=== PATIENT | female | born 1995 | race Caucasian/White ===

== ENCOUNTER 2019-09-02 20:35 | Emergency (ER) | payer SELFPAY ==
[2019-09-02] VITALS (8 sets, daily range): BP systolic 98–118; BP diastolic 61–64; PULSE 70–91; RESP 15–20; TEMP 36.4; O2SAT 96–98; BMI 31.8
--- NOTE | 2019-09-02 21:02 | W.ED.ASTHMA ---
HPI - Asthma General: Chief Complaint: Asthma Stated Complaint: asthma attacks Time Seen by Provider: 09/02/19 20:54 History of Present Illness: HPI Narrative: Patient is a very pleasant usually controlled asthmatic who presents for asthma flare- mild in nature however she was unable to get her beta agonist MDI filled today. SHe noticed she was low and called PCP but did not get ahold of her prior to being able to call in her refill. She uses a spacer with her MDI. She is wheezing and tight. WIll provide neb treatment and MDI. Pt agrees. Denies chest pain ,fever cough etc. MD complaint: asthma attack Onset (ago): hour(s) Severity: moderate Context: ran out of meds Associated symptoms: Reports no associated symptoms and non-productive cough; Deny chest pain, fever(s), hemoptysis or productive cough Asthma History: childhood onset Review of Systems Const: Denies: fever, chills, change in appetite or malaise Eyes: Denies: change in vision, blurry vision, eye discharge or eye redness ENMT: Denies: throat pain, uvular edema, painful swallowing, mouth pain, dental pain, nasal congestion or facial/sinus pain Card: Denies: chest pain, irregular heart rhythm, swelling of feet/ankles, shortness of breath on exertion, shortness of breath when lying down or leg pain with exertion Resp: Reports: shortness of breath, non-productive cough and wheezing; Denies: productive cough or coughing up blood GI: Denies: abdominal pain, nausea, vomiting, diarrhea, constipation or fecal incontinence : Denies: flank pain, difficulty urinating, painful urination, urinary frequency, urinary urgency or urinary hesitancy Musc: Denies: neck pain, back pain, extremity pain or extremity swelling Skin/Breast: Denies: rash, itching, redness, yellow skin or dry skin Neuro: Denies: headache, numbness in extremities, weakness in extremities, changes in sensation, lack of coordination or difficulty walking Psych: Denies: anxiety, depression, mood swings, panic attacks, sleeping less, suicidal ideation or homicidal ideation Endo: Denies: excessive urination, excessive thirst or tired all the time Jeff/Lymph: Denies: easy bruising, petechiae or enlarged lymph nodes All/Imm: Denies: hives, throat swelling, facial swelling, acute wheezing or seasonal allergies PFSH ED PFSH: Statuses (acute, chronic, etc) shown below reflect problem list status as previously entered and may not be historically accurate Social History Smoking and tobacco status: current every day smoker Female Reproductive History: Date of last menstrual period: 09/01/19 Physical Exam Const: COMMON NORMALS: no apparent distress, oriented x3, no limitations, healthy appearing, alert and well nourished GENERAL APPEARANCE: cooperative, comfortable, well kempt and well developed ORIENTATION/CONSCIOUSNESS: Yes awake, Yes oriented to person, Yes oriented to place and Yes oriented to time HENMT: COMMON NORMALS: normocephalic, head/scalp atraumatic, hearing grossly normal bilaterally, external ears normal, EAC's normal, TM's normal bilaterally, external nose normal, nasal mucous membranes and turbinates normal, moist oral mucous membranes, oropharynx normal, dentition normal and gingiva normal HEAD & SCALP: normal to inspection, normocephalic and atraumatic FACE & SINUS: normal facial exam NOSE: external nose normal and nasal mucous membranes and turbinates normal EXTERNAL EAR: Yes external ears normal EXTERNAL AUDITORY CANAL: EAC's normal TYMPANIC MEMBRANE: TM's normal bilaterally MOUTH: oral and palatal mucosa normal, lip normal and tongue normal THROAT: no uvular edema Eye: COMMON NORMALS: PERRL, EOMs intact bilaterally, conjunctivae normal, no scleral icterus and normal visual messer by confrontation GENERAL EYE: normal appearance of both eyes and normal light reflex VISUAL ACUITY: Yes acuity normal ALIGNMENT: Yes alignment normal PERIORBITAL: periorbital findings normal EYELID: eyelids normal CONJUNCTIVA: Yes conjunctivae normal SCLERA: sclerae normal PUPIL: Yes PERRL and Yes accommodation reflex normal DIRECT OPHTHALMOSCOPY: Yes normal light reflex Neck/C-Spine: COMMON NORMALS: full ROM, no lymphadenopathy, supple, no meningeal signs and no JVD GENERAL: Yes normal visual inspection CAROTIDS: Yes normal carotid upstroke CERVICAL SPINE: Yes cervical ROM normal Lymph: LYMPHATIC: no lymphadenopathy noted Chest: COMMONS NORMALS: inspection of chest normal CHEST: Yes symmetrical chest wall rise Resp: COMMON NORMALS: normal respiratory effort, no retractions and no use of accessory muscles EFFORT & INSPECTION: Yes able to speak in complete sentences, Yes symmetric chest movement and Yes audible wheezes AUSCULTATION: wheezes Cardio: COMMON NORMALS: no JVD, regular rate, regular rhythm, S1 normal heart sound, S2 normal heart sound, no murmurs and peripheral pulses 2+ throughout RATE: regular rate RHYTHM: regular rhythm HEART SOUNDS: S1 normal and S2 normal PERIPHERAL PULSES: pulses 2+ throughout GI: COMMON NORMALS: normal to inspection, nondistended, normoactive bowel sounds and non-tender : COMMON NORMALS: Yes no CVA tenderness BLADDER/KIDNEY EXAM: Yes no CVA tenderness Back/Pelvis: COMMON NORMALS: no CVA tenderness, thoracic and lumbar spine normal to inspection, no thoracic nor lumbar tenderness and thoraco-lumbar ROM normal Extremity: COMMON NORMALS: normal to inspection, full ROM, normal capillary refill, no calf tenderness and no pedal edema Neuro: COMMON NORMALS: oriented x3, CN's II-XII intact bilaterally, moves all extremities, no focal motor deficits, no sensory deficits noted and gait normal SENSORIUM/ORIENTATION: Yes alert, Yes oriented to person, Yes oriented to place and Yes oriented to time MENINGEAL SIGNS: Yes no meningeal signs SPEECH: speech normal GAIT: Yes normal gait MOTOR EXAM: strength 5/5 throughout, no pronator drift and no tremor noted Psych: COMMON NORMALS: mental status grossly normal, thought process normal, cooperative, affect normal, speech normal and activity/motor behavior normal APPEARANCE: Yes well kempt SPEECH: Yes normal speech THOUGHT PROCESS: normal thought process THOUGHT CONTENT: Yes normal thought content INSIGHT: insight good Skin: COMMON NORMALS: no rashes or lesions noted, no wounds, skin turgor normal and no jaundice GENERAL SKIN EXAM: no rashes or lesions noted and turgor normal Course ED course: pt better after treatment will return for problems. Vital Signs: Vital signs: Vital Signs Temperature 97.6 F 09/02/19 20:42 Pulse Rate 85 09/02/19 20:42 Respiratory Rate 20 H 09/02/19 20:42 Blood Pressure 113/62 09/02/19 20:42 Pulse Oximetry 97 09/02/19 20:42 MDM - Asthma Differential Diagnosis: Differential diagnosis asthma: Likely acute exacerbation and acute asthmatic bronchitis Medical Records: Attestation: I reviewed the patient's medical records. Discharge Plan Discharge Patient Disposition: Home, Self-Care Clinical Impression: Asthma with acute exacerbation Qualifiers: Asthma severity: moderate Asthma persistence: unspecified Qualified Code(s): J45.901 - Unspecified asthma with (acute) exacerbation Condition: Stable Prescriptions: New albuterol sulfate [Ventolin HFA] 90 mcg/actuation HFA aerosol inhaler 2 inh INHALATION Q6H PRN (Reason: shortness of breath or wheezing) Qty: 8 RF: 0 Referrals: Ester,Benjamin, MULTIGRAPH OPERATOR [Family Provider] - Discharge Diet: Usual diet Discharge Activity: Resume usual activity Patient Instructions: Asthma Exacerbation - Adult Coding 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
[2019-09-02] MEDS: ipratropium-albuterol 3 mL Neb INHALATION (22:01)
[2019-09-02] MEDS: albuterol 8 gm MDI 2 PUFF INHALATION (22:05)
== END 2019-09-02 22:26 | disposition home or self-care (01) ==
LOC: ER 22:13
PROVIDERS: Emergency Provider Emergency Medicine; Family Provider Nurse Practitioner Family
DX: J45.901 Unspecified asthma with (acute) exacerbation (principal); F17.210 Nicotine dependence, cigarettes, uncomplicated
CPT/HCPCS: 94640; 99281; 99283; J3535

== ENCOUNTER 2019-10-15 17:32 | Emergency (ER) | payer MEDICAID, SELFPAY ==
--- NOTE | 2019-10-15 17:34 | XRR_ITS ---
PROCEDURE INFORMATION: Exam: XR Chest, 2 Views Exam date and time: 10/15/2019 5:58 PM Age: 24 years old Clinical indication: Cough TECHNIQUE: Imaging protocol: XR of the chest Views: 2 views. COMPARISON: CR Chest 1 [place] [id number] 12/18/2018 12:57 AM FINDINGS: Lungs: Lungs still clear. Pleural space: Unremarkable. No pleural effusion. No pneumothorax. Heart/Mediastinum: Still no cardiomegaly. Bones/joints: Old slight compression fractures. Possible narrowing of a mid thoracic disc. XR/XR chest 2V* [id number] IMPRESSION: No acute findings.
[2019-10-15 18:15] VITALS: BP 115/79; PULSE 87; RESP 16; TEMP 36.8; O2SAT 98; BMI 34.3
[2019-10-15 19:22] VITALS: BP 105/65; PULSE 95; RESP 20; TEMP 36.7; O2SAT 98
--- NOTE | 2019-10-15 19:53 | W.ED.SOB ---
HPI - SOB/Dyspnea General: Chief Complaint: Shortness of Breath/Dyspnea Stated Complaint: SOB Time Seen by Provider: 10/15/19 19:25 History of Present Illness: MD elicited complaint: shortness of breath and cough Pertinent past history: asthma Onset (ago): hour(s) (24) Context: choking/aspiration and allergen exposure Severity: moderate Relieving factors: bronchodilators Known history of: asthma Associated symptoms: Reports chest congestion and cough; Deny abdominal pain, chest pain, dizziness, fever(s), nausea or vomiting Review of Systems Const: Denies: fever or chills Eyes: Denies: change in vision or blurry vision ENMT: Denies: painful swallowing, post nasal drip or facial/sinus pain Card: Denies: chest pain Resp: Reports: chest congestion GI: Denies: abdominal pain, nausea or vomiting : Denies: painful urination or urinary frequency Musc: Denies: neck pain, back pain, redness or joint warmth Skin/Breast: Denies: rash, itching or redness Neuro: Denies: headache, dizziness or vertigo Psych: Denies: anxiety PFSH ED PFSH: Social History Smoking and tobacco status: never smoked Female Reproductive History: Date of last menstrual period: 09/01/19 Physical Exam Const: GENERAL APPEARANCE: well developed ORIENTATION/CONSCIOUSNESS: Yes oriented to person, Yes oriented to place and Yes oriented to time HENMT: COMMON NORMALS: normocephalic, external ears normal and external nose normal HEAD & SCALP: normocephalic; no scalp tenderness FACE & SINUS: normal facial exam NOSE: external nose normal and no nasal discharge EXTERNAL EAR: Yes external ears normal MOUTH: tongue normal THROAT: posterior oropharynx normal; no peritonsillar mass Eye: COMMON NORMALS: PERRL, EOMs intact bilaterally and conjunctivae normal EYELID: eyelids normal CONJUNCTIVA: Yes conjunctivae normal PUPIL: Yes PERRL Chest: COMMONS NORMALS: inspection of chest normal CHEST: No tenderness Resp: EFFORT & INSPECTION: No tachypneic, No respiratory distress, No retractions, No uses accessory muscles and No tracheal deviation AUSCULTATION: no rhonchi, wheezes and lung sounds not diminished Cardio: COMMON NORMALS: regular rate and regular rhythm RATE: regular rate RHYTHM: regular rhythm HEART SOUNDS: no murmurs PERIPHERAL PULSES: radial pulses present GI: INSPECTION: No abdominal distension AUSCULTATION: No hyperactive bowel sounds and No hypoactive bowel sounds PALPATION: No guarding and No rigid PERCUSSION: no dullness to percussion and no tympanic to percussion Neuro: SENSORIUM/ORIENTATION: Yes oriented to person, Yes oriented to place and Yes oriented to time Psych: COMMON NORMALS: mental status grossly normal Skin: COMMON NORMALS: no rashes or lesions noted GENERAL SKIN EXAM: no rashes or lesions noted Course Vital Signs: Vital signs: Vital Signs Temperature 98.4 F 10/15/19 20:38 Pulse Rate 86 10/15/19 20:38 Respiratory Rate 18 10/15/19 20:38 Blood Pressure 102/62 10/15/19 20:38 Pulse Oximetry 98 10/15/19 20:38 MDM - SOB/Dyspnea MDM Narrative: Medical decision making narrative: 24-year-old female, 6 weeks , history of asthma, presents with wheezing and shortness of breath. She has been using her nebulizer treatments today, but they are not helping much. She is wheezing on exam. Her chest x-ray is negative. She will be discharged on prednisone, and prescribed an inhaler. Discharge Plan Discharge Patient Disposition: Home, Self-Care Clinical Impression: Asthma with exacerbation Qualifiers: Asthma severity: moderate Asthma persistence: unspecified Qualified Code(s): J45.901 - Unspecified asthma with (acute) exacerbation Condition: Stable Prescriptions: New Ventolin HFA 90 mcg/actuation HFA aerosol inhaler 2 inh INHALATION Q6H PRN (Reason: shortness of breath or wheezing) Qty: 18 RF: 0 prednisone 20 mg tablet 60 mg PO DAILY 5 Days Qty: 15 RF: 0 No Action Ventolin HFA 90 mcg/actuation HFA aerosol inhaler 2 inh INHALATION Q6H PRN (Reason: shortness of breath or wheezing) Qty: 8 RF: 0 Discharge Orders: Discharge Order (Routine); Ordered 10/15/19 Ordered By: Stew Gagnon Referrals: Benjamin Norman COLLECTIONS REPRESENTATIVE [Family Provider] - Discharge Diet: Advance as tolerated Discharge Activity: Resume usual activity Patient Instructions: Asthma (ED) Activity Restrictions/Additional Instructions: Return for fever greater than 100, shortness of breath worsening despite treatment, chest discomfort, other concerning symptoms. Use your nebulizer machine every 4-6 hours scheduled for the next 48 hours, then as needed. 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
[2019-10-15] MEDS: predniSONE 20 mg Tablet 60 MG PO (20:20)
[2019-10-15 20:38] VITALS: BP 102/62; PULSE 86; RESP 18; TEMP 36.9; O2SAT 98
--- NOTE | 2019-10-15 20:41 | PC.NURSE ---
Rn reviewed and agrees with assessment
== END 2019-10-15 20:38 | disposition home or self-care (01) ==
PROVIDERS: Emergency Provider Emergency Medicine; Family Provider Nurse Practitioner Family
DX: O99.511 Diseases of the respiratory system complicating pregnancy, first trimester (principal); J45.901 Unspecified asthma with (acute) exacerbation; Z3A.01 Less than 8 weeks gestation of pregnancy
CPT/HCPCS: 71046; 99281; 99283; J7512

== ENCOUNTER 2023-04-09 12:19 | Outpatient (CLI) | payer MEDICAID, SELFPAY ==
--- NOTE | 2023-04-09 12:36 | XR_ITS ---
WS: [id number] EXAMINATION: XR cervical spine 3V* [id number] Cervical spine 3 views REASON FOR EXAM: NECK PAIN COMPARISON: None available. FINDINGS: There is no sign of acute fracture or subluxation. Vertebral body heights and intervertebral disc sp aces are maintained. The cervical bony alignment and osseous densities appear normal. There is no p revertebral soft tissue change. IMPRESSION: No acute osseous abnormality.
--- NOTE | 2023-04-09 12:36 | XR_ITS ---
WS: [id number] EXAMINATION: XR shoulder RT min 2V* [id number] REASON FOR EXAM: PAIN IN R SHOULDER COMPARISON: None available. ORDER DATE: 04/09/2023 1:06 PM X-RAY FINDINGS: No fractures or dislocations. Normal motion of the shoulder with internal/external rotation. No degenerative changes. Acromioclavicular joint appears unremarkable. Limited visualization of the adjacent hemithorax is unremarkable. IMPRESSION: No fractures or dislocations of the right shoulder.
--- NOTE | 2023-04-09 12:36 | XR_ITS ---
WS: [id number] EXAMINATION: XR hand LT 2V [id number] REASON FOR EXAM: PAIN IN R HAND COMPARISON: None available. ORDER DATE: 04/09/2023 1:06 PM FINDINGS: There is no sign of any acute osseous or articular abnormality. There are no specific soft tissue abn ormalities. IMPRESSION: No acute change
--- NOTE | 2023-04-09 12:36 | XR_ITS ---
WS: [id number] EXAMINATION: XR hand RT 2V [id number] REASON FOR EXAM: PAIN IN R HAND COMPARISON: 3 08/18/2010 ORDER DATE: 04/09/2023 1:06 PM FINDINGS: There is no sign of any acute osseous or articular abnormality. There are no specific soft tissue abn ormalities. IMPRESSION: No acute osseous change
== END 2023-04-09 12:20 | disposition home or self-care (01) ==
PROVIDERS: Visit Provider Nurse Practitioner Family
DX: M54.2 Cervicalgia (principal); M25.511 Pain in right shoulder; M79.641 Pain in right hand
CPT/HCPCS: 72040; 73030; 73120

== ENCOUNTER 2023-08-10 00:35 | Inpatient (IN) | payer MEDICAID, SELFPAY ==
[2023-08-10] VITALS (27 sets, daily range): BP systolic 87–113; BP diastolic 56–77; PULSE 85–137; RESP 16–26; TEMP 36.5–37.1; O2SAT 91–96
--- NOTE | 2023-08-10 00:53 | ECG_ITS ---
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 Measurements Intervals [place] Rate: 131 P: 80 NE: 127 QRS: 70 QRSD: 82 T: 68 QT: 333 QTc: 493 Interpretive Statements SINUS TACHYCARDIA LOW QRS VOLTAGE IN PRECORDIAL LEADS [QRS DEFLECTION < 1.0 mV IN CHEST LEADS] POSSIBLE RIGHT VENTRICULAR CONDUCTION DELAY [RSR (QR) IN V1/V2] No previous ECG available for comparison Electronically Signed On 08-10-2023 9:10:26 EXPLOSIVES OPERATOR by Fabian Alfaro M.D. [email or web address]
--- NOTE | 2023-08-10 01:00 | XRR_ITS ---
PROCEDURE INFORMATION: Exam: XR Chest Exam date and time: 08/10/2023 1:13 AM Age: 28 years old Clinical indication: Shortness of breath; Patient HX: Asthma attack; Additional info: SOB TECHNIQUE: Imaging protocol: Radiologic exam of the chest. Views: 1 view. COMPARISON: CR XR chest 2V* [id number] 10/15/2019 5:51 PM FINDINGS: Lungs: There are patchy areas of left suprahilar and right medial lung base hazy airspace disease. Left basilar hazy opacity as well. Pleural spaces: Unremarkable. No pleural effusion. No pneumothorax. Heart/Mediastinum: Unremarkable. No cardiomegaly. Bones/joints: Unremarkable. XR/XR chest 1V portable [id number] IMPRESSION: Multifocal pneumonia with chest CT pending.
[2023-08-10] MEDS: methylPREDNISolone sod succ 125 mg/2 mL INJ IV (01:03)
[2023-08-10 01:10] LABS: Basophils % 0.3 %; Eosinophils # 0.2 10^3/uL (0.0-0.8); Eosinophils % 1.5 %; Hematocrit 41.9 % (36-47); Lymphocytes # 1.2 10^3/uL (0.8-4.8); Lymphocytes % 7.9 %; Mean Corpuscular HGB Conc 34.4 g/dL (30-55); Mean Corpuscular Hemoglobin 32.1 pg (27-33); Mean Corpuscular Volume 93.3 fl (85-98); Mean Platelet Volume 10.2 fL (7.4-10.4); Monocytes # 0.8 10^3/uL (0.2-0.9); Monocytes % 4.9 %; Neutrophils # 13.42 10^3/uL (1.8-7.7); Nucleated Red Blood Cells % 0 %; Platelet Count 267 10^3/cmm (157-399); Red Blood Count 4.49 10^6/uL (3.85-5.65); Red Cell Distribution Width 13.2 % (12.1-15.1); White Blood Count 15.78 10^3/uL (3.29-11.43)
[2023-08-10] MEDS: magnesium sulfate premix 2 GM/50 ML PIGGYBACK IV (01:10)
[2023-08-10] MEDS: ipratropium-albuterol 3 mL Neb INHALATION (01:15)
[2023-08-10 01:23] LABS: Lactic Sepsis W/Reflex 2.8 mmol/L (0.5-2.2)
[2023-08-10 01:29] LABS: Alanine Aminotransferase 8 U/L (0-33); Albumin Level 4.6 g/dL (3.5-5.2); Alkaline Phosphatase 67 U/L (35-105); Anion Gap 18.2 (5-19); Aspartate Amino Transferase 16 U/L (0-32); Blood Urea Nitrogen 8 mg/dL (6-20); Calcium 9.4 mg/dL (8.5-10.5); Carbon Dioxide 20 mmol/L (22-29); Chloride 104 mmol/L (98-107); Globulin 2.1 g/dL (1.3-4.6); Glucose 147 mg/dL (65-115); NT Pro B Type Natriuretic Pept < 36 pg/mL (0-125); Osmolality Calculated 287 mOsm/kg (285-295); Potassium 4.2 mmol/L (3.5-5.1); Sodium 138 mmol/L (136-145); Total Bilirubin 0.5 mg/dL (0.15-1.2); Total Protein 6.7 g/dL (6.6-8.7)
[2023-08-10 01:49] LABS: HCG, Serum Qual Negative (Negative)
[2023-08-10] MEDS: azithromycin 500 MG in sodium chloride 0.9% 250 ML 250 MG IV (01:53)
[2023-08-10] MEDS: sodium chloride 0.9% 2,394.96 ML 2394.96 ML IV (01:56)
--- NOTE | 2023-08-10 02:04 | P.HP_ITS ---
Providers/Chief Complaint 2 Primary Care Provider: Ester Alexander APN Chief Complaint: sob pt says asthma attack History of Present Illness Juan Monaco is a 28 year old female with history of asthma, presented with chief complaint of worsening of shortness of breath and fever. Patient is stating that a lot of people is sick at the office, she started getting sick on Friday 08/03 and then gradually got worse to the point that she is feeling rundown, extremely fatigued and lethargic, she has been noticing fever without chest pain, vomiting or diarrhea. Before coming to the hospital she used her DuoNeb and albuterol without significant improvement that prompted her visit to the ER. In the ER she was diagnosed with sepsis related to COVID-19 pneumonia she was given septic bolus and bacterial pneumonia treatment. She was put in ICU because of her asthma history ABG showing compensated pH with low pCO2 Lactic acid improvement Patient received magnesium in the ER as well Tachycardia improved with use of IV fluids Positive for COVID-19 and rhinovirus Review of Systems 2 Const: Reports: fever(s), chills and change in weight Eyes: Denies: change in vision ENMT: Denies: throat pain Card: Denies: chest pain Resp: Reports: dyspnea GI: Denies: abdominal pain : Denies: flank pain Musc: Reports: back pain; Denies: neck pain Medications/Allergies Home Medications Medication Instructions Recorded Confirmed Last Taken Type Ventolin HFA 90 mcg/actuation 2 inh inhalation Q6H PRN shortness 09/02/19 Unknown Rx aerosol inhaler (albuterol sulfate) of breath or wheezing #8 grams albuterol sulfate 90 mcg/actuation 2 inh inhalation Q6H PRN shortness 10/15/19 Unknown Rx aerosol inhaler (Ventolin HFA) of breath or wheezing #18 grams Allergies Allergy/AdvReac Type Severity Reaction Status Date / Time fluticasone Allergy ALGY-Anaphy Verified 10/15/19 18:19 [From Advair Diskus] laxis salmeterol Allergy ALGY-Anaphy Verified 10/15/19 18:19 [From Advair Diskus] laxis PFSH Acute 2 PFSH: Medical History Asthma Social History Smoking and tobacco/nicotine status: never used tobacco/nicotine Vitals/I&O/Wt Last Vital Signs Temp 98.4 F 08/10/23 00:46 Pulse 118 H 08/10/23 01:19 Resp 20 H 08/10/23 01:16 BP 113/77 08/10/23 00:46 Pulse Ox 95 08/10/23 01:16 Weight last 48 hrs Weight 79.832 kg Physical Exam 2 Narrative: Patient is awake and alert Mild wheezing Currently on room air Getting breathing treatment Abdomen soft No sign of fluid overload Heart rate 104 Sinus rhythm Nonfocal neuroexam GCS 15 S1, S2 Data 08/10/23 03:51 08/10/23 03:51 Micro: Microbiology 08/10/23 01:17 Blood Culture - Preliminary Blood SPECIMEN COLLECTED 08/10/23 01:15 Blood Culture - Preliminary Blood SPECIMEN COLLECTED A&P Assessment and plan (1) Sepsis: (2) Asthma with exacerbation: (3) Community acquired pneumonia: (4) Asthma: (5) COVID-19: Plan Sepsis related to COVID-19 Patient received septic bolus Lactic acid improved Criteria met with tachypnea tachycardia fever at home, leukocytosis, high lactic acid Continue ceftriaxone along remdesivir and Decadron Compensated pH with mild asthma exacerbation continue Decadron Patient also has rhinovirus Secondary to her history of asthma she was admitted to ICU, Her symptoms started 7 days ago, she may not require isolation if remains afebrile CTA chest showed groundglass opacities bilaterally, did speak with [facility], radiologist was not confident about PE but stated that 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
[2023-08-10 02:19] LABS: ABG PCO2 28.5 mmHg (35-45); ABG PH Result 7.39 (7.35-7.45); Base Excess ABG -6.2 mmol/L (-2.0-2.0); Blood Gas Allen Test Pos; Blood Gas Sample Site Radial, right; Blood Gas Sample Type Arterial; HCO3 ABG 17.3 mmol/L (22-26); Oxygen Device NC
--- NOTE | 2023-08-10 02:22 | CTR_ITS ---
PROCEDURE INFORMATION: Exam: CTA Chest With Contrast Exam date and time: 08/10/2023 2:31 AM Age: 28 years old Clinical indication: Abnormal findings; Abnormal diagnostic tests; Elevated d-dimer; Cough and shortness of breath; Patient HX: Cough with SOB. Dimer of 0.70 TECHNIQUE: Imaging protocol: Computed tomographic angiography of the chest with contrast. Exam focused on the arteries. 3D rendering (Not supervised by radiologist): MIP and/or 3D reconstructed images were created by the technologist. Radiation optimization: All CT scans at this facility use at least one of these dose optimization techniques: automated exposure control; mA and/or kV adjustment per patient size (includes targeted exams where dose is matched to clinical indication); or iterative reconstruction. Contrast material: OMNI 350; Contrast volume: 50 ml; Contrast route: INTRAVENOUS (IV); REPORTING DATA: Count of CT and Cardiac NM exams in prior 12 months: This patient has received 0 known CTs and 0 known cardiac nuclear medicine studies in the 12 months prior to the current study. COMPARISON: CR (CHEST, ) 08/10/2023 1:13 AM RADIATION DOSE METRICS: Total DLP (mGy-cm): 390.5 FINDINGS: Pulmonary arteries: Cannot exclude subtle RUL lobar and segmental PE. Artifacts are favored due to phase timing, but PE can not be excluded. No left-sided PE noted. Aorta: Unremarkable. No aortic aneurysm. No aortic dissection. Lungs: There are patchy areas of airspace disease in the ASA, RML, and left lung base primarily. Other scattered areas of atelectasis or pneumonitis. Pleural spaces: No pneumothorax. No pleural effusion noted. Heart: The heart is not enlarged. No pericardial effusion is noted. Heart RV/LV ratio: The RV/LV ratio is 0.8. Lymph nodes: Very mild likely reactive mediastinal lymphadenopathy noted. Bones/joints: Skeletal structures are age appropriate. No acute fracture is seen. Soft tissues: Unremarkable. CT/CT angio chest PE protcl [id number] IMPRESSION: 1. Multifocal bilateral pneumonia. Follow to resolution. 2. Cannot exclude subtle RUL PE at this time with artifacts favored. The exam is challenging in this regard.
[2023-08-10 02:34] LABS: Procalcitonin 0.07 ng/mL (0-0.5)
--- NOTE | 2023-08-10 02:39 | ED_ITS ---
HPI - SOB/Dyspnea 2 General: Chief Complaint: Shortness of Breath/Dyspnea Stated Complaint: sob pt says asthma attack Time Seen by Provider: 08/10/23 00:50 History of Present Illness: HPI Narrative: 2 to 3 days of shortness of breath. She has some chest discomfort. It radiates into her back. She has tried multiple breathing treatments at home today, numbering around 7, without much relief in her shortness of breath. She has had a temperature at home. She has been coughing with brown sputum production. She does not use oxygen at home. No swelling of her feet. MD elicited complaint: shortness of breath Pertinent past history: asthma Associated symptoms: Reports chest pain, fever(s), nausea and palpitations; Deny abdominal pain or vomiting Review of Systems 2 Const: Reports: fever(s) and chills Eyes: Denies: change in vision ENMT: Denies: throat pain Card: Reports: chest pain and palpitations Resp: Reports: dyspnea and productive cough GI: Reports: nausea; Denies: abdominal pain or vomiting : Denies: flank pain or difficulty voiding Musc: Reports: back pain Neuro: Reports: headache(s) PFSH ED 2 PFSH: Social History Smoking and tobacco/nicotine status: never used tobacco/nicotine Physical Exam 2 Const: GENERAL APPEARANCE: cooperative and ill appearing; not frail appearing HENMT: COMMON NORMALS: normocephalic, atraumatic and Normal external nose present HEAD & SCALP: normocephalic and atraumatic FACE & SINUS: normal facial exam and face symmetric NOSE: Normal external nose present Eye: COMMON NORMALS: Equal, round and reactive pupils present and EOMs intact bilaterally PUPIL: Yes Equal, round and reactive pupils present Neck/C-Spine: GENERAL: Yes trachea midline Chest: CHEST: Yes Symmetrical chest wall rise Resp: EFFORT & INSPECTION: Yes tachypneic, Yes respiratory distress and Yes labored AUSCULTATION: wheezes and diminished lung sounds Cardio: COMMON NORMALS: regular rhythm RATE: tachycardic RHYTHM: regular rhythm GI: COMMON NORMALS: Normal to inspection, nondistended, normoactive bowel sounds present Extremity: COMMON NORMALS: no pedal edema Neuro: ANDREW COMA SCALE: document GCS findings Novelty coma scale eye opening: Spontaneous Andrew coma scale verbal response: Orientated Novelty coma scale motor response: Obey commands Andrew coma scale total score: 15 S ENSORY EXAM: Yes extremities (intact) Psych: COMMON NORMALS: speech normal SPEECH: Yes normal speech Skin: COMMON NORMALS: no rashes or lesions noted GENERAL SKIN EXAM: no rashes or lesions noted Course 2 Vital Signs: Vital signs: Vital Signs Temperature 98.4 F 08/10/23 00:46 Pulse Rate 124 H 08/10/23 02:09 Respiratory Rate 26 H 08/10/23 02:09 Blood Pressure 101/68 08/10/23 02:09 Pulse Oximetry 96 08/10/23 02:09 Oxygen Delivery Me thod Nasal Cannula 08/10/23 02:09 Oxygen Flow Rate 2 08/10/23 02:09 MDM - SOB/Dyspnea Medical Decision Making Significant shortness of breath and female with a history of asthma. She has been febrile at home. She has sputum production. Her white blood cell count is 15.6. Bicarbonate level is 20. Her lactic acid is elevated at 2.8. Her D- dimer was elevated as well at 0.7. Chest x-ray shows left upper lobe pneumonia. CTA of the chest is pending. Blood gas shows pH 7.39. She has had multiple breathing treatments today. She is given a DuoNeb here as well as 2 g of magnesium sulfate, Solu-Medrol. She has gotten Rocephin and Zithromax for community-acquired pneumonia. She will go to the ICU. Hospitalist will see the patient. Lab Data 08/10/23 00:51 08/10/23 00:51 Labs/Radiology: Laboratory Results WBC 15.78 10^3/uL (3.29-11.43) H 08/10/23 00:51 RBC 4.49 10^6/uL (3.85-5.65) 08/10/23 00:51 Hgb 14.40 g/dL (11.27-16.99) 08/10/23 00:51 Hct 41.9 % (36-47) 08/10/23 00:51 MCV 93.3 fl (85-98) 08/10/23 00:51 MCH 32.1 pg (27-33) 08/10/23 00:51 MCHC 34.4 g/dL (30-55) 08/10/23 00:51 RDW 13.2 % (12.1-15.1) 08/10/23 00:51 Plt Count 267 10^3/cmm (157-399) 08/10/23 00:51 MPV 10.2 fL (7.4-10.4) 08/10/23 00:51 Neut % (Auto) 85.0 % 08/10/23 00:51 Lymph % (Auto) 7.9 % 08/10/23 00:51 [place] % (Auto) 4.9 % 08/10/23 00:51 Eos % (Auto) 1.5 % 08/10/23 00:51 Baso % (Auto) 0.3 % 08/10/23 00:51 Neut # (Auto) 13.42 10^3/uL (1.8-7.7) H 08/10/23 00:51 Lymph # (Auto) 1.2 10^3/uL (0.8-4.8) 08/10/23 00:51 [place] # (Auto) 0.8 10^3/uL (0.2-0.9) 08/10/23 00:51 Eos # (Auto) 0.2 10^3/uL (0.0-0.8) 08/10/23 00:51 Baso # (Auto) 0.0 10^3/uL (0.0-0.1) 08/10/23 00:51 Nucleated RBC % (auto) 0 % 08/10/23 00:51 Nucleated RBCs # 0.0 /100WBC 08/10/23 00:51 D-Dimer 0.70 ug/mLFEU (0-0.59) H 08/10/23 00:51 Specimen Type Arterial 08/10/23 02:08 Sample Site Radial, right 08/10/23 02:08 ABG pH 7.39 (7.35-7.45) 08/10/23 02:08 ABG pCO2 28.5 mmHg (35-45) L 08/10/23 02:08 ABG pO2 97.0 mmHg (80.0-100.0) 08/10/23 02:08 ABG HCO3 17.3 mmol/L (22-26) L 08/10/23 02:08 ABG Base Excess -6.2 mmol/L (-2.0-2.0) L 08/10/23 02:08 Alex Test Pos 08/10/23 02:08 Hematocrit 43.0 % (37-47) 08/10/23 02:08 O2 Delivery Device Nc 08/10/23 02:08 O2 Liters/Min 2.0 % 08/10/23 02:08 Er Manager ID [email or web address] 08/10/23 02:08 Sodium 138 mmol/L (136-145) 08/10/23 00:51 Potassium 4.2 mmol/L (3.5-5.1) 08/10/23 00:51 Chloride 104 mmol/L (98-107) 08/10/23 00:51 Carbon Dioxide 20 mmol/L (22-29) L 08/10/23 00:51 Anion Gap 18.2 (5-19) 08/10/23 00:51 BUN 8 mg/dL (6-20) 08/10/23 00:51 Creatinine 0.8 mg/dL (0.5-0.9) 08/10/23 00:51 GFR Calculation 86.0 mL/min (90-130) L 08/10/23 00:51 Glucose 147 mg/dL (65-115) H 08/10/23 00:51 Calculated Osmolality 287 mOsm/kg (285-295) 08/10/23 00:51 Lactic Acid 2.8 mmol/L (0.5-2.2) H 08/10/23 00:51 Calcium 9.4 mg/dL (8.5-10.5) 08/10/23 00:51 Total Bilirubin 0.5 mg/dL (0.15-1.2) 08/10/23 00:51 AST 16 U/L (0-32) 08/10/23 00:51 ALT 8 U/L (0-33) 08/10/23 00:51 Alkaline Phosphatase 67 U/L (35-105) 08/10/23 00:51 NT-Pro-B Natriuret Pep < 36 pg/mL (0-125) 08/10/23 00:51 Total Protein 6.7 g/dL (6.6-8.7) 08/10/23 00:51 Albumin 4.6 g/dL (3.5-5.2) 08/10/23 00:51 Globulin 2.1 g/dL (1.3-4.6) 08/10/23 00:51 Procalcitonin 0.07 ng/mL (0-0.5) 08/10/23 02:07 HCG, Qual Negative (Negative) 08/10/23 01:41 XR interpretation done by ED provider, pending radiology final review Critical Care Time 2 Critical Care Time: Critical Care Time: Yes Total Critical Care Time: 35 Attestation: This case had a high probability of a clinically significant, sudden, or life threatening deterioration of this patient's condition which required my full and direct attention, intervention and personal management. Time is independent of any procedures performed. Discharge Plan Discharge Patient Disposition: Admitted As Inpatient Admit Provider: Andi Hood Clinical Impression: Asthma with exacerbation, Community acquired pneumonia, Acute hypoxemic respiratory failure, Sepsis Condition: Serious Coding Level of Care Code ED Hadoop Application Developer for Bolivar Armstrong
[2023-08-10] MEDS: iohexol 350 mg/mL 500 mL Btl (per mL) IV (02:41)
[2023-08-10 02:54] LABS: Reflex Lactate Order REFLEX LACTIC ORDERD
[2023-08-10] MEDS: ALPRAZolam 0.5 mg Tablet PO (03:29)
[2023-08-10] MEDS: enoxaparin 40 mg/0.4 mL Syringe SUBCUT (03:29)
[2023-08-10] MEDS: ipratropium 0.5 mg/2.5 mL Neb INHALATION ×6 (03:30→23:58)
[2023-08-10] MEDS: cefTRIAXone 1,000 MG in sodium chloride 0.9% (plus) 50 ML 100 MG IV ×2 (03:30→08:57)
[2023-08-10] MEDS: levalbuterol 1.25 mg/3 mL Neb INHALATION ×3 (03:30→11:26)
[2023-08-10] MEDS: ondansetron 2 mg/ML SDV 2 mL 4 MG IVP (03:45)
--- NOTE | 2023-08-10 03:56 | ECG_ITS ---
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 Measurements Intervals [place] Rate: 106 P: 43 MA: 152 QRS: 52 QRSD: 83 T: 51 QT: 346 QTc: 461 Interpretive Statements SINUS TACHYCARDIA Compared to ECG 08/10/2023 02:16:17 Sinus rhythm no longer present Sinus arrhythmia no longer present Electronically Signed On 08-10-2023 23:01:42 BIODIESEL PRODUCT DEVELOPMENT MANAGER by Fabian Alfaro M.D. [id number]
[2023-08-10 03:59] LABS: Adenovirus Not Detected (NOT DETECT); Chlamydia Pneumoniae Not Detected (NOT DETECT); Coronavirus 229E,HKU1,NL63,OC4 Not Detected (NOT DETECT); Human Metapneumovirus Not Detected (NOT DETECT); Human Rhinovirus/Enterovirus Detected (NOT DETECT); Influenza A Not Detected (NOT DETECT); Influenza A H1 Not Detected (NOT DETECT); Influenza A H1-2009 Not Detected (NOT DETECT); Influenza A H3 Not Detected (NOT DETECT); Influenza B Not Detected (NOT DETECT); Mycoplasma Pneumoniae Not Detected (NOT DETECT); Parainfluenza Virus Type 1 Not Detected (NOT DETECT); Parainfluenza Virus Type 2 Not Detected (NOT DETECT); Parainfluenza Virus Type 3 Not Detected (NOT DETECT); Parainfluenza Virus Type 4 Not Detected (NOT DETECT); Respiratory Syncytial Virus A Not Detected (NOT DETECT); Respiratory Syncytial Virus B Not Detected (NOT DETECT)
[2023-08-10 04:15] LABS: SARS-COV-2 Detected (NOT DETECT)
[2023-08-10 05:15] LABS: Basophils % 0.2 %; Eosinophils % 0.1 %; Hematocrit 40.1 % (36-47); Lymphocytes # 0.4 10^3/uL (0.8-4.8); Lymphocytes % 3.2 %; Mean Corpuscular HGB Conc 33.7 g/dL (30-55); Mean Corpuscular Hemoglobin 31.9 pg (27-33); Mean Corpuscular Volume 94.8 fl (85-98); Mean Platelet Volume 10.5 fL (7.4-10.4); Monocytes # 0.3 10^3/uL (0.2-0.9); Monocytes % 2.2 %; Neutrophils # 12.14 10^3/uL (1.8-7.7); Neutrophils % 93.9 %; Nucleated Red Blood Cells % 0 %; Platelet Count 244 10^3/cmm (157-399); Red Blood Count 4.23 10^6/uL (3.85-5.65); Red Cell Distribution Width 13.4 % (12.1-15.1); White Blood Count 12.93 10^3/uL (3.29-11.43)
[2023-08-10 05:36] LABS: Anion Gap 15.6 (5-19); Blood Urea Nitrogen 6 mg/dL (6-20); C Reactive Protein 43.1 mg/L (0.0-4.9); Calcium 8.1 mg/dL (8.5-10.5); Carbon Dioxide 19 mmol/L (22-29); Chloride 108 mmol/L (98-107); Glomerular Filtration Rate 100.4 mL/min (90-130); Glucose 140 mg/dL (65-115); Magnesium 2.2 mg/dL (1.7-2.3); Osmolality Calculated 288 mOsm/kg (285-295); Potassium 3.6 mmol/L (3.5-5.1); Sodium 139 mmol/L (136-145)
[2023-08-10 05:37] LABS: Lactic Acid level (Lactate) 2.1 mmol/L (0.5-2.2)
[2023-08-10] MEDS: remdesivir 200 MG in sodium chloride 0.9% (100 ml) 60 ML 100 MG IV (07:53)
[2023-08-10] MEDS: dexamethasone 4 mg Tablet 6 MG PO (08:52)
[2023-08-10] MEDS: montelukast sodium 10 mg Tablet PO (08:53)
[2023-08-10] MEDS: acetaminophen 500 mg Tablet PO (08:53)
[2023-08-10] MEDS: potassium chloride ER 20 mEq Tablet 40 MEQ PO (08:53)
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
[2023-08-10 12:37] LABS: Troponin(5th) Baseline < 6 ng/L (0-10)
--- NOTE | 2023-08-10 13:32 | PC.NURSE ---
Report called to [facility] and given to April. All questions answered.
--- NOTE | 2023-08-10 13:59 | ECG_ITS ---
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 Measurements Intervals [place] Rate: 93 P: 36 OK: 142 QRS: 27 QRSD: 84 T: 46 QT: 357 QTc: 444 Interpretive Statements SINUS RHYTHM WITH SINUS ARRHYTHMIA LOW QRS VOLTAGE IN PRECORDIAL LEADS [QRS DEFLECTION < 1.0 mV IN CHEST LEADS] Compared to ECG 08/10/2023 00:53:06 Sinus tachycardia no longer present Electronically Signed On 08-10-2023 23:01:47 PLASTICS HEAT WELDER by Fabian Alfaro M.D. [id number]
--- NOTE | 2023-08-10 13:59 | USR_ITS ---
PROCEDURE INFORMATION: Exam: US Duplex Lower Extremity Veins, Bilateral Exam date and time: 08/10/2023 2:44 PM Age: 28 years old Clinical indication: Condition or disease; Other: Covid+; Additional info: SOB TECHNIQUE: Imaging protocol: Real-time duplex ultrasound of the bilateral extremities with 2-D leahy scale, color Doppler flow and spectral waveform analysis including responses to compression and other maneuvers (when performed) with image documentation. Complete exam focused on the lower extremity veins. COMPARISON: No relevant prior studies available. FINDINGS: Right deep veins: Unremarkable. The common femoral, femoral, proximal profunda femoral, popliteal, posterior tibial and peroneal veins are patent without thrombus. Normal Doppler waveforms. Normal compressibility and/or augmentation response. Left deep veins: Unremarkable. The common femoral, femoral, proximal profunda femoral, popliteal, posterior tibial and peroneal veins are patent without thrombus. Normal Doppler waveforms. Normal compressibility and/or augmentation response. Superficial veins: Bilateral saphenofemoral junctions are patent without thrombus. Soft tissues: Unremarkable. US/CV venous duplex [facility] [id number] IMPRESSION: No sonographic evidence of deep vein thrombosis.
--- NOTE | 2023-08-10 14:10 | PC.NURSE ---
Pt transferred to room 271. Further update given to ROMINA Chen. Pt packed and gathered her own belongings.
[2023-08-10 15:42] LABS: Troponin 5 2HR Delta 0.00001 ABS# (0-10)
[2023-08-10 19:44] LABS: Troponin 5 6HR Delta 0.00001 ng/L (0-12)
[2023-08-11] VITALS (7 sets, daily range): BP systolic 102–110; BP diastolic 62–69; PULSE 80–96; RESP 16–20; TEMP 36.4–36.8; O2SAT 92–96
--- NOTE | 2023-08-11 00:51 | PC.NURSE ---
around 2200 pt verbalized wanting to go home, expressed that frustration of having 2 IV sites and nothing going through it, nurse explained need for IV access while in hospital, pt c/o having labs drawn multiple times and no one is explaining the results to her, nurse explained why labs were being drawn and that is primarily troponin levels and that it is a series of three and that the last one drawn is the last, some lab values discussed with pt. verbalized aggravation at not getting rest due to labs, neb tx, v/s and other stuff , pt expressed that she is very sick and feels that she would be better if she is in her own home having soup, bath, in her own bed, and sleeping. requested to speak with doctor. call placed and spoke to Dr. Emanuel, explained pt request and wanting to be discharged, nurse instructed to advice pt that discharges is not done at night and it will have to wait until morning, if pt wants to we cannot stop her but she will have to do it AMA. nurse explained this to pt and nurse made sure pt understood that if she leaves AMA no meds would be prescribed for her upon leaving. pt agreed to stay but wishes to speak with doctor first thing in the morning because she wants to be dc'd. nurse told pt that the best we can do in regards to her getting rest is coordinating her care with respiratory. pt agreed.
[2023-08-11] MEDS: enoxaparin 40 mg/0.4 mL Syringe SUBCUT (04:36)
[2023-08-11] MEDS: ipratropium 0.5 mg/2.5 mL Neb INHALATION ×2 (04:49→07:12)
[2023-08-11 04:54] LABS: Basophils % 0.1 %; Hematocrit 39.6 % (36-47); Lymphocytes # 1.6 10^3/uL (0.8-4.8); Lymphocytes % 9.7 %; Mean Corpuscular HGB Conc 33.3 g/dL (30-55); Mean Corpuscular Hemoglobin 31.4 pg (27-33); Mean Corpuscular Volume 94.1 fl (85-98); Mean Platelet Volume 10.4 fL (7.4-10.4); Monocytes # 0.9 10^3/uL (0.2-0.9); Monocytes % 5.3 %; Neutrophils # 14.08 10^3/uL (1.8-7.7); Neutrophils % 84.4 %; Nucleated Red Blood Cells % 0 %; Platelet Count 271 10^3/cmm (157-399); Red Blood Count 4.21 10^6/uL (3.85-5.65); Red Cell Distribution Width 13.9 % (12.1-15.1); White Blood Count 16.68 10^3/uL (3.29-11.43)
[2023-08-11 05:10] LABS: Anion Gap 14.6 (5-19); Blood Urea Nitrogen 7 mg/dL (6-20); Calcium 8.9 mg/dL (8.5-10.5); Carbon Dioxide 21 mmol/L (22-29); Chloride 107 mmol/L (98-107); Glomerular Filtration Rate 119.9 mL/min (90-130); Glucose 138 mg/dL (65-115); Osmolality Calculated 286 mOsm/kg (285-295); Potassium 4.6 mmol/L (3.5-5.1); Sodium 138 mmol/L (136-145)
[2023-08-11] MEDS: dexamethasone 10 mg/mL INJ 6 MG IVP (06:53)
[2023-08-11] MEDS: remdesivir 100 MG in sodium chloride 0.9% (100 ml) 100 ML IV (08:12)
[2023-08-11 08:51] LABS: D Dimer 0.47 ug/mLFEU (0-0.59)
--- NOTE | 2023-08-11 09:13 | PC.CHAP ---
Pastoral Care Encounter/Spiritual Assessment Type of Contact [] Declined roller coaster operator visit [] Patient/Family/Request visit [] Outpatient visit [] Follow-up visit [] Physician referral [] Code/Alert [] Routine visit [] Staff referral [] Actively dying [] Patient sleeping [] Family support [] [] Out of room [] Palliative care [] [] Receiving care in room [] Pre-surgical visit [] Trauma [] Long length of stay [] ICU visit [x] Other No visit. Contact precautions. Relational/Emotional Strength [] Patient feels connected with others/family/visitors/staff [] Distress [] Loneliness/isolation [] Abandonment Spirituality of Patient [] Person of Patricia [] Attends Uatsdin of their Patricia [] Believes in Prayer [] Reads Bible or Episcopalian materials [] There are Spiritual issues to be addressed Coal And Ash Supervisor Interventions [] Prayer [] Active listening [] Non-anxious presence [] Spiritual/emotional support [] Crisis/trauma care [] Spiritual counseling [] Bereavement support [] Provided bereavement packet [] Provided Bible/devotional materials [] Provided toy/stuffed animal, coloring book to patient or family member [] Provided Communion [] Anointing/[place] [] Salvation [] Completed spiritual assessment [] Other: Impact on Illness or Injury [] Angry [] Fearful [] Anxious [] Often cries [] Exhaustion [] Unable to work [] Unable to attend episcopal [] Unable to walk/stand [] Unable to read [] Unable to drive [] Unable to eat/drink [] Unable to sleep [] Unable to be with family [] Patient intubated [] Other: Summary Time spent with patient
--- NOTE | 2023-08-11 09:43 | PM.DCS ---
Discharge Providers Date of Admission: 08/10/23 02:25 Date of Discharge: August 11, 2023 Attending Provider at Admission: Andi Hood MD Attending Provider at Discharge: Rich Walter MD Primary Care Provider: Ester Alexander APN Diagnoses at Discharge Discharge Diagnosis (1) Sepsis: Status: Acute (2) Asthma with exacerbation: Status: Acute (3) Community acquired pneumonia: Status: Acute (4) Asthma: Status: Acute (5) COVID-19: Status: Acute (6) Multifocal pneumonia: Status: Acute (7) Rhinovirus: Status: Acute Reason for Visit Reason for Visit: sob pt says asthma attack Hospital Course Hospital Course This is a 28-year-old female with past medical history of asthma, who presents to [facility] due to shortness of breath, wheezing, cough, Patient was admitted to [facility] for multifocal pneumonia, COVID-19 pneumonia, asthma exacerbation, she was managed initially in the ICU, on broad-spectrum antibiotic therapy steroid therapy, nebulizer treatments, remdesivir. She was moved to general medical floors, overall she remains on room air she continues to have wheezing, on 08/11/2023, patient was seen continues to have diffuse wheezing, no evidence of respiratory distress, I have implored patient to stay here in the hospital for further treatment with antibiotics, steroids, remdesivir, antibiotics however she is adamant about going home as she has children at home to take care of. Discussed morbidity and mortality associate with severe asthma exacerbations, multifocal pneumonia, COVID-19, she voiced understanding, all questions answered, however is adamant about discharging home. Will discharge her on a long steroid taper, antibiotic therapy, nebulizer treatments, if she were to have any worsening shortness of breath to go to the emergency room Patient's CT angiogram of the chest showed multifocal bilateral pneumonia, she should follow-up with pulmonary as outpatient. It did show that the CT angiogram cannot exclude subtle right upper lobe pulmonary embolism at this time with artifacts favored, I discussed her CT angiogram findings with her her venous ultrasound was negative for DVT, her D-dimer has trended down towards 0.47 today. She is on room air, no chest pain her troponin trend is unremarkable, no acute ST-T wave changes on EKG. We discussed that I think the probability of a pulmonary embolism is fairly low, low risk does not mean no risk especially as she has COVID-19 which is associate with hypercoagulable events, and multifocal pneumonia, we discussed possible anticoagulation, after discussing the risk and benefits of anticoagulation, she voiced understanding, all questions answered, declined anticoagulation for now. Especially as she has COVID-19 I advised her to continue to be mobile, monitor for hypercoagulable events if so go to the emergency room. Physical Exam Const: COMMON NORMALS: no acute distress and patient oriented x3 Resp: COMMON NORMALS: normal respiratory effort, No retractions, No use of accessory muscles and clear to auscultation bilaterally AUSCULTATION: clear to auscultation bilaterally Cardio: COMMON NORMALS: regular rate, regular rhythm, S1 normal heart sound present and S2 normal heart sound present RATE: regular rate RHYTHM: regular rhythm HEART SOUNDS: S1 normal heart sound present and S2 normal heart sound present GI: COMMON NORMALS: Normal to inspection, nondistended, normoactive bowel sounds present and non-tender Extremity: COMMON NORMALS: no pedal edema Neuro: COMMON NORMALS: patient oriented x3 Psych: COMMON NORMALS: mental status grossly normal Discharge Data Studies Completed and Pending Completed Studies During Hospitalization Category Date Time Status CT angio chest PE protcl [id number] Urgent Cat Scan 08/10/23 02:22 Completed XR chest 1V portable [id number] Stat Exams 08/10/23 01:00 [place] [id number] Routine Ultrasound 08/10/23 13:59 Completed Pending at discharge Category Date Time Status Blood Cultures ([facility]) Routine Lab 08/10/23 01:15 Received Blood Cultures ([facility]) Routine Lab 08/10/23 01:17 Received Sputum Culture and Gram Stain Routine Lab 08/10/23 08:16 Received Radiology Impressions Chest X-Ray 08/10/23 01:00 IMPRESSION: Multifocal pneumonia with chest CT pending. Chest CTA 08/10/23 02:22 IMPRESSION: 1. Multifocal bilateral pneumonia. Follow to resolution. 2. Cannot exclude subtle RUL PE at this time with artifacts favored. The exam is challenging in this regard. ADDENDUM: 08/10/23 0339 THIS REPORT CONTAINS FINDINGS THAT MAY BE CRITICAL TO PATIENT CARE. The findings were verbally communicated via telephone conference at 3:37 AM SYNCHRONOUS MOTOR ASSEMBLER on 08/10/[address] Silverman. The findings were acknowledged and understood. Venous Duplex 08/10/23 13:59 IMPRESSION: No sonographic evidence of deep vein thrombosis. Laboratory Results WBC 16.68 10^3/uL (3.29-11.43) H 08/11/23 04:35 RBC 4.21 10^6/uL (3.85-5.65) 08/11/23 04:35 Hgb 13.20 g/dL (11.27-16.99) 08/11/23 04:35 Hct 39.6 % (36-47) 08/11/23 04:35 MCV 94.1 fl (85-98) 08/11/23 04:35 MCH 31.4 pg (27-33) 08/11/23 04:35 MCHC 33.3 g/dL (30-55) 08/11/23 04:35 RDW 13.9 % (12.1-15.1) 08/11/23 04:35 Plt Count 271 10^3/cmm (157-399) 08/11/23 04:35 MPV 10.4 fL (7.4-10.4) 08/11/23 04:35 Neut % (Auto) 84.4 % 08/11/23 04:35 Lymph % (Auto) 9.7 % 08/11/23 04:35 [place] % (Auto) 5.3 % 08/11/23 04:35 Eos % (Auto) 0.0 % 08/11/23 04:35 Baso % (Auto) 0.1 % 08/11/23 04:35 Neut # (Auto) 14.08 10^3/uL (1.8-7.7) H 08/11/23 04:35 Lymph # (Auto) 1.6 10^3/uL (0.8-4.8) 08/11/23 04:35 [place] # (Auto) 0.9 10^3/uL (0.2-0.9) 08/11/23 04:35 Eos # (Auto) 0.0 10^3/uL (0.0-0.8) 08/11/23 04:35 Baso # (Auto) 0.0 10^3/uL (0.0-0.1) 08/11/23 04:35 Nucleated RBC % (auto) 0 % 08/11/23 04:35 Nucleated RBCs # 0.0 /100WBC 08/11/23 04:35 D-Dimer 0.47 ug/mLFEU (0-0.59) 08/11/23 04:35 Specimen Type Arterial 08/10/23 02:08 Sample Site Radial, right 08/10/23 02:08 ABG pH 7.39 (7.35-7.45) 08/10/23 02:08 ABG pCO2 28.5 mmHg (35-45) L 08/10/23 02:08 ABG pO2 97.0 mmHg (80.0-100.0) 08/10/23 02:08 ABG HCO3 17.3 mmol/L (22-26) L 08/10/23 02:08 ABG Base Excess -6.2 mmol/L (-2.0-2.0) L 08/10/23 02:08 Alex Test Pos 08/10/23 02:08 Hematocrit 43.0 % (37-47) 08/10/23 02:08 O2 Delivery Device Nc 08/10/23 02:08 O2 Liters/Min 2.0 % 08/10/23 02:08 Supervisor Cytology ID [email or web address] 08/10/23 02:08 Sodium 138 mmol/L (136-145) 08/11/23 04:35 Potassium 4.6 mmol/L (3.5-5.1) 08/11/23 04:35 Chloride 107 mmol/L (98-107) 08/11/23 04:35 Carbon Dioxide 21 mmol/L (22-29) L 08/11/23 04:35 Anion Gap 14.6 (5-19) 08/11/23 04:35 BUN 7 mg/dL (6-20) 08/11/23 04:35 Creatinine 0.6 mg/dL (0.5-0.9) 08/11/23 04:35 GFR Calculation 119.9 mL/min (90-130) 08/11/23 04:35 Glucose 138 mg/dL (65-115) H 08/11/23 04:35 Calculated Osmolality 286 mOsm/kg (285-295) 08/11/23 04:35 Lactic Acid 2.8 mmol/L (0.5-2.2) H 08/10/23 00:51 Lactic Acid (Sepsis) 2.1 mmol/L (0.5-2.2) 08/10/23 03:51 Calcium 8.9 mg/dL (8.5-10.5) 08/11/23 04:35 Magnesium 2.2 mg/dL (1.7-2.3) 08/10/23 03:51 Total Bilirubin 0.5 mg/dL (0.15-1.2) 08/10/23 00:51 AST 16 U/L (0-32) 08/10/23 00:51 ALT 8 U/L (0-33) 08/10/23 00:51 Alkaline Phosphatase 67 U/L (35-105) 08/10/23 00:51 Troponin T Baseline < 6 ng/L (0-10) 08/10/23 12:16 Troponin T 120 Minute 6.00 ng/L (0-10) 08/10/23 15:01 Delta Troponin T 0.15642 ABS# (0-10) 08/10/23 15:01 Troponin T Hi Sens 6Hr 6.00 ng/L (0-10) 08/10/23 19:05 Troponin T Hi Sens 6Hr Delta 0.51458 ng/L (0-12) 08/10/23 19:05 C-Reactive Protein 43.1 mg/L (0.0-4.9) H 08/10/23 03:51 NT-Pro-B Natriuret Pep < 36 pg/mL (0-125) 08/10/23 00:51 Total Protein 6.7 g/dL (6.6-8.7) 08/10/23 00:51 Albumin 4.6 g/dL (3.5-5.2) 08/10/23 00:51 Globulin 2.1 g/dL (1.3-4.6) 08/10/23 00:51 Procalcitonin 0.07 ng/mL (0-0.5) 08/10/23 02:07 HCG, Qual Negative (Negative) 08/10/23 01:41 Nasal Influ A H1 2009 PCR Not detected (NOT DETECT) 08/10/23 02:06 Adenovirus (PCR) Not detected (NOT DETECT) 08/10/23 02:06 C. pneumoniae DNA (PCR) Not detected (NOT DETECT) 08/10/23 02:06 Coronavirus 229E (PCR) Not detected (NOT DETECT) 08/10/23 02:06 Human Metapneumovir PCR Not detected (NOT DETECT) 08/10/23 02:06 Influenza A (H1) PCR Not detected (NOT DETECT) 08/10/23 02:06 Influenza A (H3) PCR Not detected (NOT DETECT) 08/10/23 02:06 Influenza Type A (PCR) Not detected (NOT DETECT) 08/10/23 02:06 Influenza Type B (PCR) Not detected (NOT DETECT) 08/10/23 02:06 M. pneumoniae (PCR) Not detected (NOT DETECT) 08/10/23 02:06 Parainfluenza 1 (PCR) Not detected (NOT DETECT) 08/10/23 02:06 Parainfluenza 2 (PCR) Not detected (NOT DETECT) 08/10/23 02:06 Parainfluenza 3 (PCR) Not detected (NOT DETECT) 08/10/23 02:06 Parainfluenza 4 (PCR) Not detected (NOT DETECT) 08/10/23 02:06 RSV Type A (PCR) Not detected (NOT DETECT) 08/10/23 02:06 RSV Type B (PCR) Not detected (NOT DETECT) 08/10/23 02:06 Entero/Rhino (PCR) Detected (NOT DETECT) A 08/10/23 02:06 SARS-CoV-2 (PCR) Detected (NOT DETECT) A 08/10/23 02:06 Vitals Last Vital Signs Temp 98.2 F 08/11/23 08:00 Pulse 93 08/11/23 08:00 Resp 20 H 08/11/23 08:00 BP 105/67 08/11/23 08:00 Pulse Ox 92 08/11/23 08:00 O2 Del Method Room Air 08/11/23 08:00 O2 Flow Rate 2 08/10/23 02:09 Discharge Plan Discharge Patient Disposition: Home Condition: Serious Prescriptions: New levofloxacin 750 mg tablet 750 mg PO DAILY 5 Days Qty: 5 0RF prednisone 10 mg tablet See Rx Instructions .ROUTE .COMPLEX Qty: 53 0RF Rx Instructions: 4 tabs a day for 5 days, 3 tab for 5 days, 2 tab for 5 days, 1 tab for 5 days, 0.5 tab for 5 days ipratropium-albuterol 0.5 mg-3 mg(2.5 mg base)/3 mL solution for nebulization 3 ml inhalation Q6H PRN (Reason: shortness of breath or wheezing) Qty: 90 0RF Continued Ventolin HFA 90 mcg/actuation HFA aerosol inhaler 2 inh INHALATION Q6H PRN (Reason: shortness of breath or wheezing) Qty: 8 0RF albuterol sulfate 90 mcg/actuation HFA aerosol inhaler 2 inh INHALATION Q6H PRN (Reason: shortness of breath or wheezing) Qty: 18 0RF Discharge Orders: Discharge Order (Routine); Ordered 08/11/23 Ordered By: Rich Walter Referrals: Ester Alexander APN [Primary Care Provider] - 08/18/23 3:00 pm Datar,Kyree Thomas MD [Physician] - 1 week Discharge Diet: Cardiac Discharge Activity: Resume usual activity Patient Instructions: Opioid Safety Activity Restrictions/Additional Instructions: - If any worsening shortness of breath go to emergency room -If any chest pain, calf pain, calf swelling, or hemoptysis go to emergency room Discharge Attestations Time Spent in Discharge Care*: greater than 30 min Quality Metrics Clinical Quality Measures [ No reported AMI, CVA or VTE this stay] Coding Level of Care Code 42440 Total time (in minutes) for Discharge: 45 Diagnoses Sepsis A41.9 Asthma with exacerbation J45.901 Community acquired pneumonia J18.9 Asthma J45.909 COVID-19 U07.1 Multifocal pneumonia J18.9 Rhinovirus B34.8
[2023-08-11] MEDS: cefTRIAXone 1,000 MG in sodium chloride 0.9% (plus) 50 ML 100 MG IV (10:19)
[2023-08-11] MEDS: montelukast sodium 10 mg Tablet PO (10:19)
[2023-08-11] MEDS: methylPREDNISolone sod succ 125 mg/2 mL INJ IVP (10:24)
[2023-08-11] MEDS: azithromycin 500 MG in sodium chloride 0.9% 250 ML 250 MG IV (10:32)
[2023-08-11] MEDS: ondansetron 2 mg/ML SDV 2 mL 4 MG IVP (11:18)
== END 2023-08-11 12:39 | disposition home or self-care (01) | DRG 177 ==
LOC: ER 01:47 → ICU 02:26 → MEDSURG 14:03
PROVIDERS: Admitting Provider Internal Medicine; Emergency Provider Emergency Medicine; PCP Nurse Practitioner Family; Visit Provider Family Medicine
DX: U07.1 COVID-19 (principal); J18.9 Pneumonia, unspecified organism; J45.901 Unspecified asthma with (acute) exacerbation; E87.20 Acidosis, unspecified; B34.8 Other viral infections of unspecified site
CPT/HCPCS: 36415; 36600; 71045; 71275; 80048; 80053; 82803; 83605; 83735; 83880; 84145; 84484; 84703; 85025; 85378; 86140; 87040; 87070; 87205; 87486; 87581; 87633; 93005; 93970; 94640; 96365; 96367; 96372; 96375; 99285; J0248; J0456; J0696; J1100; J1650; J2405; J2930; J3475; J7030; J7050; J7614; J7644; J8540; Q9967

== ENCOUNTER 2023-10-07 18:51 | Emergency (ER) | payer MEDICAID, SELFPAY ==
[2023-10-07] VITALS (23 sets, daily range): BP systolic 101–105; BP diastolic 67–79; PULSE 75–112; RESP 14–17; TEMP 36.9; O2SAT 94–98
--- NOTE | 2023-10-07 19:08 | ECG_ITS ---
[facility] Test Date: 2023-10-07 Pat Name: Juan Maravilla Department: Room: Gender: Female Mat Repairer: : 1995 Requested By: Ramy Zaman Order Number: [id number] Canelo MD: Elise Mosqueda M.D. Measurements Intervals [place] Rate: 81 P: 39 [place]: 145 QRS: 25 QRSD: 80 T: 57 QT: 361 QTc: 421 Interpretive Statements SINUS RHYTHM LOW QRS VOLTAGE IN PRECORDIAL LEADS [QRS DEFLECTION < 1.0 mV IN CHEST LEADS] POSSIBLE RIGHT VENTRICULAR CONDUCTION DELAY [RSR (QR) IN V1/V2] Compared to ECG 02/23/2015 05:05:42 Sinus arrhythmia no longer present Electronically Signed On 10-08-2023 10:51:07 IT SECURITY ENGINEER by Elise Mosqueda M.D. [id number]
--- NOTE | 2023-10-07 19:08 | XRR_ITS ---
PROCEDURE INFORMATION: Exam: XR Chest Exam date and time: 10/07/2023 7:31 PM Age: 28 years old Clinical indication: Chest wall pain; Additional info: Chest pain TECHNIQUE: Imaging protocol: Radiologic exam of the chest. Views: 1 view. COMPARISON: CT angio chest PE protcl [id number] 08/10/2023 2:31 AM FINDINGS: Lungs: No focal consolidation. Pleural spaces: No evidence of pneumothorax. No evidence of pleural effusion. Heart/Mediastinum: Cardiomediastinal silhouette is within normal limits. Bones/joints: No evidence of acute osseous abnormality. XR/XR chest 1V portable [id number] IMPRESSION: 1. No acute cardiopulmonary abnormality.
--- NOTE | 2023-10-07 19:10 | ED_ITS ---
HPI - Chest Pain 2 General: Chief Complaint: Chest Pain Stated Complaint: cp Time Seen by Provider: 10/07/23 19:08 History of Present Illness: 28-year-old female comes in today for co mplaints of posterior back pain going through to the center of her chest. Patient reports pain for the last 2 hours. Patient also reports for the last 2 months she has had chest discomfort on and off after having COVID. Patient appears nontoxic. Patient appears in mild pain. Patient has a history of asthma. Review of Systems 2 General: Reports: 10 or more systems reviewed and unremarkable except in HPI and below Card: Reports: chest pain Musc: Reports: back pain PFSH ED 2 PFSH: Medical History Asthma Social History Smoking and tobacco/nicotine status: never used tobacco/nicotine Physical Exam 2 Const: COMMON NORMALS: alert HENMT: COMMON NORMALS: normocephalic HEAD & SCALP: normocephalic Neck/C-Spine: COMMON NORMALS: full ROM Chest: COMMONS NORMALS: normal palpation of entire chest wall Resp: COMMON NORMALS: normal respiratory effort and clear to auscultation bilaterally AUSCULTATION: clear to auscultation bilaterally Cardio: COMMON NORMALS: regular rate and regular rhythm RATE: regular rate RHYTHM: regular rhythm GI: COMMON NORMALS: non-tender : COMMON NORMALS: Yes no CVA tenderness BLADDER/KIDNEY EXAM: Yes no CVA tenderness Back/Pelvis: COMMON NORMALS: no CVA tenderness THORACIC SPINE/UPPER BACK: Y es paraspinal muscle tenderness LUMBAR SPINE/LOWER BACK: No lumbar spinal tenderness and No paraspinal muscle tenderness Extremity: COMMON NORMALS: normal to inspection Neuro: SENSORIUM/ORIENTATION: Yes alert Skin: COMMON NORMALS: turgor normal GENERAL SKIN EXAM: turgor normal Course 2 Vital Signs: Vital signs: Vital Signs Temperature 98.4 F 10/07/23 18:55 Pulse Rate 88 10/07/23 19:12 Respiratory Rate 15 10/07/23 19:12 Blood Pressure 105/79 10/07/23 19:35 Pulse Oximetry 96 10/07/23 19:35 Oxygen Delivery Me thod Room Air 10/07/23 19:12 MDM - Chest Pain Medical Decision Making 28-year-old female comes in today for complaints of mid back pain radiating through to her chest. Patient reports pain started about 2 hours ago. Patient reports some intermittent chest pain since having COVID 2 months ago. Patient appears nontoxic. Lungs are clear to auscultation. Heart rates regular. Skin is warm and dry. Vital signs are normal. Differential diagnosis includes but not limited to myocarditis, pericarditis, ACS, anxiety, muscle strain, costochondritis. CBC, CMP, D-dimer, troponin, and BNP were all within normal limits. Chest x-ray showed no abnormalities. EKG was normal. Reviewed exam with patient with recommendations for treatment and follow-up with primary care. Patient reported understanding and agreed to plan. Believe the patient's pain may be secondary to musculoskeletal due to the tenderness of her chest wall. Patient reported understanding. Lab Data 10/07/23 19:17 10/07/23 19:17 Radiology Impressions Chest X-Ray 10/07/23 19:08 IMPRESSION: 1. No acute cardiopulmonary abnormality. Laboratory Results WBC 9.33 10^3/uL (3.29-11.43) 10/07/23 19:17 RBC 4.32 10^6/uL (3.85-5.65) 10/07/23 19:17 Hgb 14.20 g/dL (11.27-16.99) 10/07/23 19:17 Hct 41.6 % (36-47) 10/07/23 19:17 MCV 96.3 fl (85-98) 10/07/23 19:17 MCH 32.9 pg (27-33) 10/07/23 19:17 MCHC 34.1 g/dL (30-55) 10/07/23 19:17 RDW 12.4 % (12.1-15.1) 10/07/23 19:17 Plt Count 326 10^3/cmm (157-399) 10/07/23 19:17 MPV 9.5 fL (7.4-10.4) 10/07/23 19:17 Neut % (Auto) 51.1 % 10/07/23 19:17 Lymph % (Auto) 36.7 % 10/07/23 19:17 [place] % (Auto) 7.6 % 10/07/23 19:17 Eos % (Auto) 3.4 % 10/07/23 19:17 Baso % (Auto) 0.9 % 10/07/23 19:17 Neut # (Auto) 4.77 10^3/uL (1.8-7.7) 10/07/23 19:17 Lymph # (Auto) 3.4 10^3/uL (0.8-4.8) 10/07/23 19:17 [place] # (Auto) 0.7 10^3/uL (0.2-0.9) 10/07/23 19:17 Eos # (Auto) 0.3 10^3/uL (0.0-0.8) 10/07/23 19:17 Baso # (Auto) 0.1 10^3/uL (0.0-0.1) 10/07/23 19:17 Nucleated RBC % (auto) 0 % 10/07/23 19:17 Nucleated RBCs # 0.0 /100WBC 10/07/23 19:17 D-Dimer <= 0.27 ug/mLFEU (0-0.59) 10/07/23 19:17 Sodium 138 mmol/L (136-145) 10/07/23 19:17 Potassium 3.9 mmol/L (3.5-5.1) 10/07/23 19:17 Chloride 105 mmol/L (98-107) 10/07/23 19:17 Carbon Dioxide 24 mmol/L (22-29) 10/07/23 19:17 Anion Gap 12.9 (5-19) 10/07/23 19:17 BUN 12 mg/dL (6-20) 10/07/23 19:17 Creatinine 0.7 mg/dL (0.5-0.9) 10/07/23 19:17 GFR Calculation 100.4 mL/min (90-130) 10/07/23 19:17 Glucose 90 mg/dL (65-115) 10/07/23 19:17 Calculated Osmolality 285 mOsm/kg (285-295) 10/07/23 19:17 Calcium 8.8 mg/dL (8.5-10.5) 10/07/23 19:17 Total Bilirubin 0.3 mg/dL (0.15-1.2) 10/07/23 19:17 AST 13 U/L (0-32) 10/07/23 19:17 ALT 10 U/L (0-33) 10/07/23 19:17 Alkaline Phosphatase 55 U/L (35-105) 10/07/23 19:17 Troponin T Baseline < 6 ng/L (0-10) 10/07/23 19:17 NT-Pro-B Natriuret Pep < 36 pg/mL (0-125) 10/07/23 19:17 Total Protein 6.4 g/dL (6.6-8.7) L 10/07/23 19:17 Albumin 4.4 g/dL (3.5-5.2) 10/07/23 19:17 Globulin 2.0 g/dL (1.3-4.6) 10/07/23 19:17 HCG, Qual Negative (Negative) 10/07/23 19:17 All radiology interpretation(s) finalized by discharge EKG Data EKG 1: EKG interpretation date: 10/07/23 EKG interpretation time: 19:15 Prior EKG tracings: not available for review Interpretation: EKG shows a sinus rhythm with a regular rate [address] elevation or ectopy is noted. No prior exam was available for immediate comparison. Computer generated interpretation: Sinus rhythm, low QRS voltage in precordial leads, possible right ventricular conduction delay. Compared to EKG from February 23, 2015, sinus arrhythmia no longer present. Discharge Plan Discharge Patient Disposition: Home Clinical Impression: Chest pain Qualifiers: Chest pain type: other chest pain Qualified Code(s): R07.89 - Other chest pain Condition: Stable Prescriptions: No Action Ventolin HFA 90 mcg/actuation HFA aerosol inhaler 2 inh INHALATION Q6H PRN (Reason: shortness of breath or wheezing) Qty: 8 0RF prednisone 10 mg tablet See Rx Instructions .ROUTE .COMPLEX Qty: 53 0RF Rx Instructions: 4 tabs a day for 5 days, 3 tab for 5 days, 2 tab for 5 days, 1 tab for 5 days, 0.5 tab for 5 days ipratropium-albuterol 0.5 mg-3 mg(2.5 mg base)/3 mL solution for nebulization 3 ml inhalation Q6H PRN (Reason: shortness of breath or wheezing) Qty: 90 0RF albuterol sulfate 90 mcg/actuation HFA aerosol inhaler 2 inh INHALATION Q6H PRN (Reason: shortness of breath or wheezing) Qty: 18 0RF Discharge Orders: Discharge ED (Routine); Ordered 10/07/23 Ordered By: Ramy Kilgore Referrals: Ester Alexander APN [Primary Care Provider] - Discharge Diet: Usual diet Discharge Activity: Increase activity as tolerated Patient Instructions: Noncardiac Chest Pain (ED) Activity Restrictions/Additional Instructions: Home and rest. Use acetaminophen and/or ibuprofen to help with pain. Gentle stretching and range of motion exercises. Use ice or heat for further pain relief. Drink plenty of water and fluids. Follow-up with primary care for further instructions. Coding Level of Care Code ED Business Attorney for Bolivar Armstrong
[2023-10-07 19:30] LABS: Basophils # 0.1 10^3/uL (0.0-0.1); Basophils % 0.9 %; Eosinophils # 0.3 10^3/uL (0.0-0.8); Eosinophils % 3.4 %; Hematocrit 41.6 % (36-47); Lymphocytes # 3.4 10^3/uL (0.8-4.8); Lymphocytes % 36.7 %; Mean Corpuscular HGB Conc 34.1 g/dL (30-55); Mean Corpuscular Hemoglobin 32.9 pg (27-33); Mean Corpuscular Volume 96.3 fl (85-98); Mean Platelet Volume 9.5 fL (7.4-10.4); Monocytes # 0.7 10^3/uL (0.2-0.9); Monocytes % 7.6 %; Neutrophils # 4.77 10^3/uL (1.8-7.7); Neutrophils % 51.1 %; Nucleated Red Blood Cells % 0 %; Platelet Count 326 10^3/cmm (157-399); Red Blood Count 4.32 10^6/uL (3.85-5.65); Red Cell Distribution Width 12.4 % (12.1-15.1); White Blood Count 9.33 10^3/uL (3.29-11.43)
[2023-10-07 19:55] LABS: Troponin(5th) Baseline < 6 ng/L (0-10)
[2023-10-07 20:04] LABS: HCG, Serum Qual Negative (Negative)
[2023-10-07 20:21] LABS: Alanine Aminotransferase 10 U/L (0-33); Albumin Level 4.4 g/dL (3.5-5.2); Alkaline Phosphatase 55 U/L (35-105); Anion Gap 12.9 (5-19); Aspartate Amino Transferase 13 U/L (0-32); Blood Urea Nitrogen 12 mg/dL (6-20); Calcium 8.8 mg/dL (8.5-10.5); Carbon Dioxide 24 mmol/L (22-29); Chloride 105 mmol/L (98-107); Glomerular Filtration Rate 100.4 mL/min (90-130); Glucose 90 mg/dL (65-115); NT Pro B Type Natriuretic Pept < 36 pg/mL (0-125); Osmolality Calculated 285 mOsm/kg (285-295); Potassium 3.9 mmol/L (3.5-5.1); Sodium 138 mmol/L (136-145); Total Bilirubin 0.3 mg/dL (0.15-1.2); Total Protein 6.4 g/dL (6.6-8.7)
[2023-10-07 21:30] LABS: D Dimer <= 0.27 ug/mLFEU (0-0.59)
== END 2023-10-07 20:55 | disposition home or self-care (01) ==
PROVIDERS: Emergency Provider Nurse Practitioner Family; PCP Nurse Practitioner Family
DX: R07.89 Other chest pain (principal)
CPT/HCPCS: 71045; 80053; 83880; 84484; 84703; 85025; 85378; 93005; 99285

== ENCOUNTER 2024-01-12 09:24 | Emergency (ER) | payer MEDICAID, SELFPAY ==
[2024-01-12 09:43] VITALS: BP 105/72; PULSE 68; RESP 18; TEMP 36.4; O2SAT 96; BMI 30.1
--- NOTE | 2024-01-12 09:52 | W.ED.EXTPRO ---
HPI - Extremity Problem General: Chief complaint: Extremity Problem,Nontraumatic Stated complaint: right wrist pain Time Seen by Provider: 01/12/24 09:25 Source: patient Mode of arrival: ambulatory Limitations: no limitations History of Present Illness: Patient is a 28-year-old female presents to ED today with complaints of an enlarging and painful ganglion cyst to the dorsum of her right hand. Patient states she has had this for approximately 2 years. Patient feels like it is enlarging and becoming more painful. She is requesting I drain it today. Denies redness, warmth, inflammation. Complaint: extremity pain Onset (ago): year(s) Pain Consistency: constant Location: right and upper extremity (hand) Radiation: none Relieving factors: immobilization Exacerbating factors: other (use of hand) Associated symptoms: Reports no associated symptoms Review of Systems Musc: Reports: extremity pain (dorsal R hand/cyst) Skin/Breast: Reports: other (ganglion cyst R hand) Neuro: Denies: numbness in extremities, weakness in extremities or sensory changes PFS ED PFSH: Medical History Psychiatric care Asthma Social History Smoking and tobacco/nicotine status: never used tobacco/nicotine Physical Exam Const: COMMON NORMALS: no acute distress, average body habitus, no limitations, healthy appearing, alert and well nourished Extremity: COMMON NORMALS: full ROM and capillary refill normal GENERAL: Yes normal exam except as noted RIGHT UPPER EXTREMITY: Yes hand & digits (small pea sized probable ganglion cyst R dorsal hand) Neuro: COMMON NORMALS: moves all extremities, no focal motor deficits and no sensory deficits noted SENSORIUM/ORIENTATION: Yes alert Course Vital Signs: Vital signs: Vital Signs Temperature 97.5 F L 01/12/24 09:43 Pulse Rate 68 01/12/24 09:43 Respiratory Rate 18 01/12/24 09:43 Blood Pressure 105/72 01/12/24 09:43 Pulse Oximetry 96 01/12/24 09:43 MDM - Extremity (Nontraumatic) Medical Decision Making 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 There is no indication for emergent drainage or intervention from an emergency standpoint. Recommend she follow up with orthopedics for discussion of drainage vs surgical incision. No radiology studies performed this visit Discharge Plan Discharge Patient Disposition: Home Clinical Impression: Ganglion cyst of tendon sheath of right hand Condition: Stable Prescriptions: No Action Ventolin HFA 90 mcg/actuation HFA aerosol inhaler 2 inh INHALATION Q6H PRN (Reason: shortness of breath or wheezing) Qty: 8 0RF prednisone 10 mg tablet See Rx Instructions .ROUTE .COMPLEX Qty: 53 0RF Rx Instructions: 4 tabs a day for 5 days, 3 tab for 5 days, 2 tab for 5 days, 1 tab for 5 days, 0.5 tab for 5 days ipratropium-albuterol 0.5 mg-3 mg(2.5 mg base)/3 mL solution for nebulization 3 ml inhalation Q6H PRN (Reason: shortness of breath or wheezing) Qty: 90 0RF albuterol sulfate 90 mcg/actuation HFA aerosol inhaler 2 inh INHALATION Q6H PRN (Reason: shortness of breath or wheezing) Qty: 18 0RF Discharge Orders: Discharge ED (Routine); Ordered 01/12/24 Ordered By: Kim Marvin Referrals: Ester Alexander APN [Primary Care Provider] - Patient Instructions: Ganglion Cyst, Ganglion Cyst (ED) Activity Restrictions/Additional Instructions: As we discussed we will have you follow-up with Dr. Flowers so he can discuss with you possible surgical intervention of your ganglion cyst as it continues to bother you. Coding Level of Care Code ED Gun Barrel Finisher for Bolivar Armstrong
--- NOTE | 2024-01-12 10:32 | DCPLANNER ---
Message sent to Ortho for follow up with Lionel-
== END 2024-01-12 10:01 | disposition home or self-care (01) ==
PROVIDERS: Emergency Provider Physician Assistant; PCP Nurse Practitioner Family
DX: M67.441 Ganglion, right hand (principal)
CPT/HCPCS: 99281

== ENCOUNTER 2024-01-31 12:52 | Emergency (ER) | payer MEDICAID, SELFPAY ==
[2024-01-31 13:15] VITALS: BP 126/72; PULSE 125; RESP 24; TEMP 38.6; O2SAT 95; BMI 29.7
[2024-01-31 13:50] LABS: Influenza A by IFA negative (Negative); Influenza B by IFA negative (Negative); SARS Covid-2 Antigen negative (Negative)
--- NOTE | 2024-01-31 14:59 | ED_ITS ---
HPI - Fever 2 General: Chief Complaint: Fever Stated Complaint: fever, nauseau Time Seen by Provider: 01/31/24 14:55 History of Present Illness: 28-year-old female comes in today for co mplaints of fever and chills starting this morning. Patient reports generalized bodyaches. Patient also reports a lump to her left axilla area. Patient appears nontoxic. Patient appears mildly unwell. Patient reports exposure to illness from her boyfriend and believes she might have COVID or mono. Review of Systems 2 General: Reports: 10 or more systems reviewed and unremarkable except in HPI and below PFSH ED 2 PFSH: Medical History Psychiatric care Asthma Social History Smoking and tobacco/nicotine status: never used tobacco/nicotine Physical Exam 2 Const: COMMON NORMALS: alert HENMT: COMMON NORMALS: normocephalic HEAD & SCALP: normocephalic Neck/C-Spine: COMMON NORMALS: full ROM Resp: COMMON NORMALS: normal respiratory effort and clear to auscultation bilaterally AUSCULTATION: clear to auscultation bilaterally Cardio: COMMON NORMALS: regular rate RATE: regular rate GI: COMMON NORMALS: Soft to palpation and non-tender PALPATION: Yes Soft to palpation Extremity: COMMON NORMALS: normal to inspection Neuro: SENSORIUM/ORIENTATION: Yes alert Skin: COMMON NORMALS: turgor normal NARRATIVE SKIN EXAM: Redness and tenderness noted to the left breast area. Lymphadenopathy noted to the left axilla. GENERAL SKIN EXAM: turgor normal Course 2 Vital Signs: Vital signs: Vital Signs Temperature 101.5 F H 01/31/24 13:15 Pulse Rate 108 H 01/31/24 16:09 Respiratory Rate 24 H 01/31/24 13:15 Blood Pressure 95/65 01/31/24 16:09 Pulse Oximetry 100 01/31/24 16:09 Oxygen Delivery Me thod Room Air 01/31/24 16:09 MDM - Fever Medical Decision Making Patient comes in with illness x 1 day. On exam patient appears nontoxic. Patient reports body aches and chills. Patient states that she feels like she has the flu. On exam patient also endorses some minimal swelling to the left axilla area. Patient has a history of breast reduction. Examination of the breast notes erythema and tenderness. Differential diagnosis includes mastitis, cellulitis, lymphadenitis, viral syndrome, upper respiratory infection. CBC showed a white count of 14,000. CRP was elevated at 45. Patient was negative for flu, COVID, and mono. Believe patient most likely has mastitis. Will start on clindamycin 450 mg 3 times a day for the next 7 days. Recommend follow-up with primary care in 2 to 3 days for recheck. Return to ED for new concerns. Patient reported understanding and agreed to plan. Lab Data 01/31/24 15:10 01/31/24 15:10 Laboratory Results WBC 14.53 10^3/uL (3.29-11.43) H 01/31/24 15:10 RBC 4.70 10^6/uL (3.85-5.65) 01/31/24 15:10 Hgb 15.00 g/dL (11.27-16.99) 01/31/24 15:10 Hct 44.3 % (36-47) 01/31/24 15:10 MCV 94.3 fl (85-98) 01/31/24 15:10 MCH 31.9 pg (27-33) 01/31/24 15:10 MCHC 33.9 g/dL (30-55) 01/31/24 15:10 RDW 12.2 % (12.1-15.1) 01/31/24 15:10 Plt Count 288 10^3/cmm (157-399) 01/31/24 15:10 MPV 10.0 fL (7.4-10.4) 01/31/24 15:10 Neut % (Auto) 81.7 % 01/31/24 15:10 Lymph % (Auto) 11.1 % 01/31/24 15:10 [place] % (Auto) 5.9 % 01/31/24 15:10 Eos % (Auto) 0.5 % 01/31/24 15:10 Baso % (Auto) 0.3 % 01/31/24 15:10 Neut # (Auto) 11.86 10^3/uL (1.8-7.7) H 01/31/24 15:10 Lymph # (Auto) 1.6 10^3/uL (0.8-4.8) 01/31/24 15:10 [place] # (Auto) 0.9 10^3/uL (0.2-0.9) 01/31/24 15:10 Eos # (Auto) 0.1 10^3/uL (0.0-0.8) 01/31/24 15:10 Baso # (Auto) 0.1 10^3/uL (0.0-0.1) 01/31/24 15:10 Nucleated RBC % (auto) 0 % 01/31/24 15:10 Nucleated RBCs # 0.0 /100WBC 01/31/24 15:10 Sodium 135 mmol/L (136-145) L 01/31/24 15:10 Potassium 3.7 mmol/L (3.5-5.1) 01/31/24 15:10 Chloride 99 mmol/L (98-107) 01/31/24 15:10 Carbon Dioxide 23 mmol/L (22-29) 01/31/24 15:10 Anion Gap 16.7 (5-19) 01/31/24 15:10 BUN 9 mg/dL (6-20) 01/31/24 15:10 Creatinine 0.9 mg/dL (0.5-0.9) 01/31/24 15:10 GFR Calculation 75.1 mL/min (90-130) L 01/31/24 15:10 Glucose 101 mg/dL (65-115) 01/31/24 15:10 Calculated Osmolality 279 mOsm/kg (285-295) L 01/31/24 15:10 Calcium 9.0 mg/dL (8.5-10.5) 01/31/24 15:10 Total Bilirubin 0.6 mg/dL (0.15-1.2) 01/31/24 15:10 AST 12 U/L (0-32) 01/31/24 15:10 ALT 8 U/L (0-33) 01/31/24 15:10 Alkaline Phosphatase 64 U/L (35-105) 01/31/24 15:10 C-Reactive Protein 45.5 mg/L (0.0-4.9) H 01/31/24 15:10 Total Protein 7.2 g/dL (6.6-8.7) 01/31/24 15:10 Albumin 4.4 g/dL (3.5-5.2) 01/31/24 15:10 Globulin 2.8 g/dL (1.3-4.6) 01/31/24 15:10 HCG, Qual Negative (Negative) 01/31/24 15:10 Urine Color Yellow (Yellow) 01/31/24 15:39 Urine Appearance Clear (CLEAR) 01/31/24 15:39 Urine pH 5 (5-7) 01/31/24 15:39 Ur Specific [place] 1.015 (1.005-1.030) 01/31/24 15:39 Urine Protein Neg (Negative) 01/31/24 15:39 Urine Glucose (UA) Norm (Normal) 01/31/24 15:39 Urine Ketones Negative (Negative) 01/31/24 15:39 Urine Blood Trace (Negative) H 01/31/24 15:39 Urine Nitrate Negative (Negative) 01/31/24 15:39 Urine Bilirubin Neg (Negative) 01/31/24 15:39 Urine Urobilinogen Norm mg/dL (Negative) 01/31/24 15:39 Ur Leukocyte Esterase Negative (Negative) 01/31/24 15:39 Urine RBC Rare /hpf (0-2) 01/31/24 15:39 Urine WBC 0-4 /hpf (0-5) H 01/31/24 15:39 Ur Squamous Epith Cells Rare /hpf (0-5) 01/31/24 15:39 Amorphous Sediment Not Reportable 01/31/24 15:39 Urine Bacteria Trace /hpf (NONE) 01/31/24 15:39 Urine Mucus 2+ /hpf 01/31/24 15:39 Monoscreen Negative (Negative) 01/31/24 15:10 Influenza Type A Ag negative (Negative) 01/31/24 13:22 Influenza Type B Ag negative (Negative) 01/31/24 13:22 SARS-CoV-2 Ag (Rapid) negative (Negative) 01/31/24 13:22 No radiology studies performed this visit Discharge Plan Discharge Patient Disposition: Home Clinical Impression: Mastitis, left, acute Condition: Stable Prescriptions: New clindamycin HCl 150 mg capsule 450 mg PO Q8H 7 Days Qty: 63 0RF No Action Ventolin HFA 90 mcg/actuation HFA aerosol inhaler 2 inh INHALATION Q6H PRN (Reason: shortness of breath or wheezing) Qty: 8 0RF prednisone 10 mg tablet See Rx Instructions .ROUTE .COMPLEX Qty: 53 0RF Rx Instructions: 4 tabs a day for 5 days, 3 tab for 5 days, 2 tab for 5 days, 1 tab for 5 days, 0.5 tab for 5 days ipratropium-albuterol 0.5 mg-3 mg(2.5 mg base)/3 mL solution for nebulization 3 ml inhalation Q6H PRN (Reason: shortness of breath or wheezing) Qty: 90 0RF albuterol sulfate 90 mcg/actuation HFA aerosol inhaler 2 inh INHALATION Q6H PRN (Reason: shortness of breath or wheezing) Qty: 18 0RF Discharge Orders: Discharge ED (Routine); Ordered 01/31/24 Ordered By: Ramy Kilgore Referrals: Ester Alexander APN [Primary Care Provider] - Patient Instructions: Mastitis (ED) Activity Restrictions/Additional Instructions: Drink plenty of water and fluids. Activity as tolerated. Follow-up with primary care for further instructions. Return to ED for new concerns. Coding Level of Care Code ED [employer] for [facility] Armstrong
[2024-01-31] MEDS: clindamycin 600 MG/50 ML PREMIX 100 MG IV (15:00)
[2024-01-31 15:21] VITALS: BP 103/71; PULSE 110; O2SAT 95
[2024-01-31 15:36] LABS: Basophils # 0.1 10^3/uL (0.0-0.1); Basophils % 0.3 %; Eosinophils # 0.1 10^3/uL (0.0-0.8); Eosinophils % 0.5 %; Hematocrit 44.3 % (36-47); Lymphocytes # 1.6 10^3/uL (0.8-4.8); Lymphocytes % 11.1 %; Mean Corpuscular HGB Conc 33.9 g/dL (30-55); Mean Corpuscular Hemoglobin 31.9 pg (27-33); Mean Corpuscular Volume 94.3 fl (85-98); Monocytes # 0.9 10^3/uL (0.2-0.9); Monocytes % 5.9 %; Neutrophils # 11.86 10^3/uL (1.8-7.7); Neutrophils % 81.7 %; Nucleated Red Blood Cells % 0 %; Platelet Count 288 10^3/cmm (157-399); Red Cell Distribution Width 12.2 % (12.1-15.1); White Blood Count 14.53 10^3/uL (3.29-11.43)
[2024-01-31 15:56] LABS: HCG, Serum Qual Negative (Negative)
[2024-01-31 15:58] LABS: Monoscreen Negative (Negative)
[2024-01-31 16:01] LABS: Alanine Aminotransferase 8 U/L (0-33); Albumin Level 4.4 g/dL (3.5-5.2); Alkaline Phosphatase 64 U/L (35-105); Anion Gap 16.7 (5-19); Aspartate Amino Transferase 12 U/L (0-32); Blood Urea Nitrogen 9 mg/dL (6-20); C Reactive Protein 45.5 mg/L (0.0-4.9); Carbon Dioxide 23 mmol/L (22-29); Chloride 99 mmol/L (98-107); Creatinine Clr Calc Pharmacy 91.7835; Globulin 2.8 g/dL (1.3-4.6); Glomerular Filtration Rate 75.1 mL/min (90-130); Glucose 101 mg/dL (65-115); Osmolality Calculated 279 mOsm/kg (285-295); Potassium 3.7 mmol/L (3.5-5.1); Sodium 135 mmol/L (136-145); Total Bilirubin 0.6 mg/dL (0.15-1.2); Total Protein 7.2 g/dL (6.6-8.7)
[2024-01-31 16:09] VITALS: BP 95/65; PULSE 108; O2SAT 100
[2024-01-31 16:10] LABS: Add Urine Culture? No; Add Urine Microscopic? YES; Bacteria Urine TRACE /hpf; Bilirubin Urine Neg (Negative); Blood Urine Trace (Negative); Glucose Urine UA Norm (Normal); Ketones Urine Negative (Negative); Leukocyte Esterase Urine Negative (Negative); Mucus Urine 2+ /hpf; Nitrate Urine Negative (Negative); Protein Urine Neg (Negative); RBC Urine RARE /hpf (0-2); Specific Gravity, Urine 1.015 (1.005-1.030); Squamous Epithelial Cell Urine RARE /hpf (0-5); Urine Appearance Clear (CLEAR); Urine Color Yellow (Yellow); Urobilinogen Urine Norm (Negative); WBC Urine 0-4 /hpf (0-5); pH Urine 5 (5-7)
[2024-01-31 17:23] VITALS: BP 95/65; PULSE 108; RESP 24; TEMP 38.6; O2SAT 100
== END 2024-01-31 17:30 | disposition home or self-care (01) ==
PROVIDERS: Emergency Medicine; Emergency Provider Nurse Practitioner Family; PCP Nurse Practitioner Family
DX: N61.0 Mastitis without abscess (principal); Z11.52 Encounter for screening for COVID-19
CPT/HCPCS: 80053; 81001; 84703; 85025; 86140; 86308; 87040; 87426; 87804; 96365; 99284; J3490

== ENCOUNTER → 2024-02-23 08:08 | Outpatient (BNVA) | payer MEDICAID, SELFPAY | PROVIDERS: PCP Nurse Practitioner Family; Visit Provider Physician Assistant | DX: M67.431 Ganglion, right wrist | CPT/HCPCS: 73130 ==

== ENCOUNTER 2024-05-25 18:48 | Emergency (ER) | payer MEDICAID, SELFPAY ==
[2024-05-25 19:08] VITALS: BP 104/73; PULSE 91; RESP 16; TEMP 36.6; O2SAT 98
[2024-05-25 19:44] LABS: Bilirubin Urine Negative (Negative); Blood Urine Negative (Negative); Glucose Urine UA Negative (Normal); Ketones Urine Trace (Negative); Leukocyte Esterase Urine Negative (Negative); Nitrate Urine Negative (Negative); Protein Urine Negative (Negative); Specific Gravity, Urine 1.025 (1.005-1.030); Urine Appearance Clear (CLEAR); Urine Color Yellow (Yellow)
[2024-05-25 19:49] LABS: Add Urine Microscopic? YES; Bacteria Urine None Seen /hpf; Hyaline Casts Urine 2.46 /lpf; RBC Urine 0-2 /hpf (0-2); Squamous Epithelial Cell Urine 0-5 /hpf (0-5); WBC Urine 0-5 /hpf (0-5)
--- NOTE | 2024-05-25 19:59 | USR_ITS ---
PROCEDURE INFORMATION: Exam: US Pelvis, Transvaginal, Non-Obstetric Exam date and time: 05/25/2024 9:25 PM Age: 29 years old Clinical indication: Pelvic pain; Prior surgery; Surgery date: 6+ months; Surgery type: partial hysterectomy 2022 C/O endometriosis and history of multiple ovarian cysts. G2-p2-a0-l2. ; Additional info: Llq pain/l pelvic pain TECHNIQUE: Imaging protocol: Real-time transvaginal pelvic (non-obstetric) ultrasound with image documentation. Transvaginal imaging was used for better evaluation of the endometrium, adnexa, and/or cervix. COMPARISON: No relevant prior studies available. FINDINGS: Uterus: Uterus not identified. Right ovary/adnexa: Ovaries are not imaged. Left ovary/adnexa: Ovaries are not imaged. Urinary bladder: Urinary bladder is limited. Intraperitoneal space: No free fluid. US/US transvaginal [id number] IMPRESSION: 1. Uterus not identified. 2. Ovaries are not imaged.
--- NOTE | 2024-05-25 20:00 | ED_ITS ---
HPI - Abdominal Pain 2 General: Chief Complaint: Abdominal Pain Stated Complaint: abd pain Time Seen by Provider: 05/25/24 19:53 Source: patient Mode of arrival: ambulatory Limitations: no limitations History of Present Illness: Patient is a 29-year-old female presents to ED today with a complaint of acute onset left lower abdominal/pelvic pain. She states pain initially began around 4 AM this morning and awoke her from sleep. She states shortly after onset of pain she felt nauseous and vomited and was pale and dizzy and had diarrhea. Those symptoms have pretty well resolved upon arrival to ED. States she took a Tramadol earlier for pain and this is helping. History of endometriosis. She is status post partial hysterectomy for this. History of ovarian cysts. No known history of kidney or ureter stones. She is not having any urinary symptoms. Patient appears in absolutely no acute distress upon arrival. Vital signs are stable. MD elicited complaint: abdominal pain and other (L pelvic pain) Pertinent past history: other (ovarian cysts/endometriosis) Onset (ago): hour(s) Pain Consistency: constant Location: Pelvis Severity: severe Quality: sharp Radiation: none Migration to: no migration Exacerbating factors: nothing Relieving factors: other (Tramadol ) Associated Symptoms: Reports diarrhea (resolved ), nausea (resolved) and vomiting (resolved); Denies chills, dysuria, fever(s), hematochezia, hematemesis and melena Related Data Previous Rx's Medication Instructions Recorded Ventolin HFA 90 mcg/actuation 2 inh inhalation Q6H PRN shortness 08/11/23 aerosol inhaler (albuterol sulfate) of breath or wheezing #8 grams albuterol sulfate 90 mcg/actuation 2 inh inhalation Q6H PRN shortness 08/11/23 aerosol inhaler of breath or wheezing #18 grams ipratropium 0.5 mg-albuterol 3 mg 3 ml inhalation Q6H PRN shortness 08/11/23 (2.5 mg base)/3 mL nebulization of breath or wheezing #90 mL soln prednisone 10 mg tablet See Rx Instructions .Route 08/11/23 .COMPLEX #53 tabs Allergies Allergy/AdvReac Type Severity Reaction Status Date / Time fluticasone Allergy ALGY-Anaphy Verified 05/25/24 19:14 [From Advair Diskus] laxis salmeterol Allergy ALGY-Anaphy Verified 05/25/24 19:14 [From Advair Diskus] laxis Review of Systems 2 Const: Denies: fever(s), chills, body aches, fatigue or malaise Card: Denies: chest pain Resp: Denies: dyspnea GI: Reports: abdominal pain, nausea (resolved), vomiting (resolved) and diarrhea (resolved ); Denies: hematemesis, pain on defecation, rectal pain, hematochezia or melena : Reports: pelvic pain; Denies: flank pain, difficulty voiding, dysuria, urinary frequency, urinary urgency, urinary hesitancy, vaginal bleeding or vaginal discharge Musc: Denies: neck pain, back pain, extremity pain, extremity swelling, joint pain or joint swelling Skin/Breast: Denies: rash Neuro: Reports: dizziness (resolved); Denies: headache(s), numbness in extremities, weakness in extremities or sensory changes PFSH ED 2 PFSH: Medical History Psychiatric care Asthma Social History Smoking and tobacco/nicotine status: current every day tobacco/nicotine user Physical Exam 2 Const: COMMON NORMALS: no acute distress, average body habitus, patient oriented x3, no limitations, healthy appearing, alert and well nourished Resp: COMMON NORMALS: normal respiratory effort and clear to auscultation bilaterally AUSCULTATION: clear to auscultation bilaterally Cardio: COMMON NORMALS: regular rate and regular rhythm RATE: regular rate RHYTHM: regular rhythm GI: COMMON NORMALS: Normal to inspection, nondistended, normoactive bowel sounds present, Soft to palpation, No hepatosplenomegaly present and no masses INSPECTION: Yes normal to inspection AUSCULTATION: Yes normoactive bowel sounds PALPATION: Yes Soft to palpation, Yes Tenderness to palpation present (GI) (LLQ/L pelvis; non-surgical examination), No Guarding due to palpation present (GI), No Rigid due to palpation and Yes No hepatosplenomegaly present : COMMON NORMALS: Yes no CVA tenderness BLADDER/KIDNEY EXAM: Yes no CVA tenderness Back/Pelvis: COMMON NORMALS: no CVA tenderness Extremity: GENERAL: Yes normal exam except as noted Neuro: COMMON NORMALS: patient oriented x3, moves all extremities, no focal motor deficits and no sensory deficits noted SENSORIUM/ORIENTATION: Yes alert Skin: COMMON NORMALS: no rashes or lesions noted GENERAL SKIN EXAM: no rashes or lesions noted Course 2 Vital Signs: Vital signs: Vital Signs Temperature 97.9 F 05/25/24 19:08 Pulse Rate 87 05/25/24 21:00 Respiratory Rate 16 05/25/24 19:08 Blood Pressure 100/73 05/25/24 21:00 Pulse Oximetry 95 05/25/24 21:00 Oxygen Delivery Me thod Room Air 05/25/24 21:00 MDM - Abdominal Pain Medical Decision Making History seemingly consistent with a possible ruptured ovarian cyst. She clinically appears in no acute distress. Vital signs are stable. Her blood work and urine are all completely unremarkable. US transvaginal performed and surprisingly, neither ovary could be identified. She does state her hysterectomy was a partial hysterectomy and they did not perform oophorectomy. Discussed CT imaging for further evaluation of pelvic pathology and other left lower quadrant abdominal/pelvic etiology such as colitis/diverticulitis/etc. At this time patient states her pain is improved and would like to go home. She is agreeable to coming back to the emergency department for onset of worsening pain or other symptoms. Discussed I would like her to follow-up with primary care later this week for reevaluation. Lab Data I reviewed the patient's lab results. 05/25/24 20:56 05/25/24 20:56 Labs/Radiology: Radiology Impressions Transvaginal US 05/25/24 19:59 IMPRESSION: 1. Uterus not identified. 2. Ovaries are not imaged. Laboratory Results WBC 9.39 10^3/uL (3.29-11.43) 05/25/24 20:56 RBC 4.41 10^6/uL (3.85-5.65) 05/25/24 20:56 Hgb 13.80 g/dL (11.27-16.99) 05/25/24 20:56 Hct 41.8 % (36-47) 05/25/24 20:56 MCV 94.8 fl (85-98) 05/25/24 20:56 MCH 31.3 pg (27-33) 05/25/24 20:56 MCHC 33.0 g/dL (30-55) 05/25/24 20:56 RDW 12.3 % (12.1-15.1) 05/25/24 20:56 Plt Count 310 10^3/cmm (157-399) 05/25/24 20:56 MPV 9.0 fL (7.4-10.4) 05/25/24 20:56 Neut % (Auto) 59.0 % 05/25/24 20:56 Lymph % (Auto) 26.5 % 05/25/24 20:56 [place] % (Auto) 7.9 % 05/25/24 20:56 Eos % (Auto) 5.6 % 05/25/24 20:56 Baso % (Auto) 0.7 % 05/25/24 20:56 Neut # (Auto) 5.53 10^3/uL (1.8-7.7) 05/25/24 20:56 Lymph # (Auto) 2.5 10^3/uL (0.8-4.8) 05/25/24 20:56 [place] # (Auto) 0.7 10^3/uL (0.2-0.9) 05/25/24 20:56 Eos # (Auto) 0.5 10^3/uL (0.0-0.8) 05/25/24 20:56 Baso # (Auto) 0.1 10^3/uL (0.0-0.1) 05/25/24 20:56 Nucleated RBC % (auto) 0 % 05/25/24 20:56 Nucleated RBCs # 0.0 /100WBC 05/25/24 20:56 Sodium 134 mmol/L (136-145) L 05/25/24 20:56 Potassium 4.4 mmol/L (3.5-5.1) 05/25/24 20:56 Chloride 103 mmol/L (98-107) 05/25/24 20:56 Carbon Dioxide 25 mmol/L (22-29) 05/25/24 20:56 Anion Gap 10.4 (5-19) 05/25/24 20:56 BUN 11 mg/dL (6-20) 05/25/24 20:56 Creatinine 0.8 mg/dL (0.5-0.9) 05/25/24 20:56 GFR Calculation 85.4 mL/min (90-130) L 05/25/24 20:56 Glucose 94 mg/dL (65-115) 05/25/24 20:56 Calculated Osmolality 277 mOsm/kg (285-295) L 05/25/24 20:56 Calcium 8.6 mg/dL (8.5-10.5) 05/25/24 20:56 Total Bilirubin 0.3 mg/dL (0.15-1.2) 05/25/24 20:56 AST 15 U/L (0-32) 05/25/24 20:56 ALT 15 U/L (0-33) 05/25/24 20:56 Alkaline Phosphatase 52 U/L (35-105) 05/25/24 20:56 Total Protein 6.4 g/dL (6.6-8.7) L 05/25/24 20:56 Albumin 4.1 g/dL (3.5-5.2) 05/25/24 20:56 Globulin 2.3 g/dL (1.3-4.6) 05/25/24 20:56 Lipase 32 U/L (13-60) 05/25/24 20:56 Urine Color Yellow (Yellow) 05/25/24 19:17 Urine Appearance Clear (CLEAR) 05/25/24 19:17 Urine pH 6.0 (5-7) 05/25/24 19:17 Ur Specific [place] 1.025 (1.005-1.030) 05/25/24 19:17 Urine Protein Negative (Negative) 05/25/24 19:17 Urine Glucose (UA) Negative (Normal) 05/25/24 19:17 Urine Ketones Trace (Negative) 05/25/24 19:17 Urine Blood Negative (Negative) 05/25/24 19:17 Urine Nitrate Negative (Negative) 05/25/24 19:17 Urine Bilirubin Negative (Negative) 05/25/24 19:17 Urine Urobilinogen 1.0 mg/dL (Negative) 05/25/24 19:17 Ur Leukocyte Esterase Negative (Negative) 05/25/24 19:17 Urine RBC 0-2 /hpf (0-2) 05/25/24 19:17 Urine WBC 0-5 /hpf (0-5) 05/25/24 19:17 Ur Squamous Epith Cells 0-5 /hpf (0-5) 05/25/24 19:17 Amorphous Sediment Not Reportable 05/25/24 19:17 Urine Bacteria None seen /hpf (NONE) 05/25/24 19:17 Hyaline Casts 2.46 /lpf 05/25/24 19:17 All radiology interpretation(s) finalized by discharge Discharge Plan Discharge Patient Disposition: Home Clinical Impression: Abdominal pain, left lower quadrant Condition: Stable Prescriptions: No Action Ventolin HFA 90 mcg/actuation HFA aerosol inhaler 2 inh INHALATION Q6H PRN (Reason: shortness of breath or wheezing) Qty: 8 0RF prednisone 10 mg tablet See Rx Instructions .ROUTE .COMPLEX Qty: 53 0RF Rx Instructions: 4 tabs a day for 5 days, 3 tab for 5 days, 2 tab for 5 days, 1 tab for 5 days, 0.5 tab for 5 days ipratropium-albuterol 0.5 mg-3 mg(2.5 mg base)/3 mL solution for nebulization 3 ml inhalation Q6H PRN (Reason: shortness of breath or wheezing) Qty: 90 0RF albuterol sulfate 90 mcg/actuation HFA aerosol inhaler 2 inh INHALATION Q6H PRN (Reason: shortness of breath or wheezing) Qty: 18 0RF Discharge Orders: Discharge ED (Routine); Ordered 05/25/24 Ordered By: Kim Marvin Referrals: Ester Alexander APN [Primary Care Provider] - Patient Instructions: Abdominal Pain (ED) Activity Restrictions/Additional Instructions: As we discussed, I would continue to monitor symptoms closely at home. You need to return to the emergency department for further onset of left lower abdominal/pelvic pain, constant pain, bloody stools, fevers, repetitive episodes of vomiting, generally feeling worse or unwell, lightheadedness/dizziness/passing out episodes, or any other concerns you may have. Hope you begin to feel better soon. I would like you to attempt to follow-up with primary care later this week for reevaluation. Coding Level of Care Code ED [employer] Inside for Bolivar Armstrong
[2024-05-25 20:24] VITALS: BP 100/67; PULSE 79; O2SAT 97
[2024-05-25 21:00] VITALS: BP 100/73; PULSE 87; O2SAT 95
[2024-05-25 21:07] LABS: Basophils # 0.1 10^3/uL (0.0-0.1); Basophils % 0.7 %; Eosinophils # 0.5 10^3/uL (0.0-0.8); Eosinophils % 5.6 %; Hematocrit 41.8 % (36-47); Lymphocytes # 2.5 10^3/uL (0.8-4.8); Lymphocytes % 26.5 %; Mean Corpuscular Hemoglobin 31.3 pg (27-33); Mean Corpuscular Volume 94.8 fl (85-98); Monocytes # 0.7 10^3/uL (0.2-0.9); Monocytes % 7.9 %; Neutrophils # 5.53 10^3/uL (1.8-7.7); Nucleated Red Blood Cells % 0 %; Platelet Count 310 10^3/cmm (157-399); Red Blood Count 4.41 10^6/uL (3.85-5.65); Red Cell Distribution Width 12.3 % (12.1-15.1); White Blood Count 9.39 10^3/uL (3.29-11.43)
[2024-05-25 21:29] LABS: Alanine Aminotransferase 15 U/L (0-33); Albumin Level 4.1 g/dL (3.5-5.2); Alkaline Phosphatase 52 U/L (35-105); Anion Gap 10.4 (5-19); Aspartate Amino Transferase 15 U/L (0-32); Blood Urea Nitrogen 11 mg/dL (6-20); Carbon Dioxide 25 mmol/L (22-29); Chloride 103 mmol/L (98-107); Creatinine Clr Calc Pharmacy 104.4417; Globulin 2.3 g/dL (1.3-4.6); Glomerular Filtration Rate 85.4 mL/min (90-130); Glucose 94 mg/dL (65-115); Lipase 32 U/L (13-60); Osmolality Calculated 277 mOsm/kg (285-295); Potassium 4.4 mmol/L (3.5-5.1); Sodium 134 mmol/L (136-145); Total Bilirubin 0.3 mg/dL (0.15-1.2); Total Protein 6.4 g/dL (6.6-8.7)
[2024-05-25 21:59] LABS: Calcium 8.6 mg/dL (8.5-10.5)
[2024-05-25] MEDS: ondansetron 4 MG Tablet PO (22:15)
[2024-05-25 22:51] VITALS: BP 119/70; PULSE 77; RESP 16; O2SAT 98
== END 2024-05-25 22:52 | disposition home or self-care (01) ==
PROVIDERS: Emergency Medicine; Emergency Provider Physician Assistant; PCP Nurse Practitioner Family
DX: R10.32 Left lower quadrant pain (principal); Z72.0 Tobacco use
CPT/HCPCS: 36415; 76830; 80053; 81001; 83690; 85025; 99284; Q0162